=== PATIENT | male | born 1945 | race Two or more races ===

== ENCOUNTER 2020-03-02 18:00 | Inpatient (IN) | payer OTHER ==
[~2020-03-02] VITALS: Ht 162.6 cm; Wt 89.5 kg
[2020-03-02 20:49] LABS: Basophils # (auto) 0 10 ^3/uL (0-0.2); Eosinophils # (auto) 0 10 ^3/uL (0-0.8); Lymphocytes # (auto) 0.4 10 ^3/uL (0.4-5.4); Monocytes # (auto) 0.3 10 ^3/uL (0-1.3); Neutrophils # (auto) 2.2 10 ^3/uL (1.6-8.6); White Blood Cell 2.9 10^3/uL (4.4-10.8)
[2020-03-02 20:51] LABS: Basophils % (auto) 0.3 % (0.0-2.0); Hematocrit 34.9 % (41.0-53.0); Hemoglobin 12.8 g/dL (13.5-17.5); Lymphocytes % (auto) 13.7 % (10.0-50.0); Mean Corpuscular Hemoglobin 37.8 pg (28.0-32.0); Mean Corpuscular Hgb Conc. 36.6 g/dL (32.0-36.0); Mean Corpuscular Volume 103.2 fL (80.0-100.0); Platelet Count (auto) 82 10^3/uL (140-450); Red Blood Cells 3.38 10^6/uL (4.5-5.90); Red Cell Distribution Width 13.9 % (11.8-14.3)
[2020-03-02] MEDS ORDERED: ZINC SULFATE 220mg CAP or TAB PO ONE (21:00)
[2020-03-02] MEDS ORDERED: AZITHROMYCIN 500MG/ 250ML 250 ML IV ONE (21:00)
[2020-03-02] MEDS ORDERED: ASCORBIC ACID 500 MG TAB PO ONE (21:00)
[2020-03-02] MEDS ORDERED: DexAMETHasone SOD PHOS 10MG/1ML VIAL INJ IV ONE (21:15)
[2020-03-02 21:23] LABS: Albumin 2.8 g/dL (3.4-5.0); BUN/Creatinine Ratio 14.6; Potassium 4.2 mmol/L (3.5-5.1)
[2020-03-02 21:24] LABS: Lactic Acid w/Reflex 2.2 mmol/L (0.4-2.0)
[2020-03-02 21:27] LABS: Total Protein 7.9 g/dL (6.4-8.2)
[2020-03-02 23:09] LABS: INR 2.48 (0.9-1.15); Partial Thromboplastin Time 47.8 sec (23.0-31.2)
[2020-03-03] MEDS ORDERED: MORPHINE SULFATE 4 MG/ML SYR/VIAL IV PRN (02:30)
[2020-03-03] MEDS ORDERED: NITROGLYCERIN 0.4 MG SL TAB SL PRN (02:30)
[2020-03-03] MEDS ORDERED: ACETAMINOPHEN 325 MG TAB PO PRN (02:30)
[2020-03-03] MEDS ORDERED: HYDROcodone-ACET 5/325MG TAB PO PRN (02:30)
[2020-03-03] MEDS ORDERED: ONDANSETRON HCL 4 MG/2 ML VIAL IV PRN (02:30)
[2020-03-03] MEDS ORDERED: MORPHINE SULF INJ 2 MG/ML SYRINGE 1ML IV PRN (02:30)
[2020-03-03] MEDS ORDERED: DOCUSATE SOD 100 MG CAP PO PRN (02:30)
[2020-03-03] MEDS ORDERED: ALBUTEROL SULF HFA 90MCG INH 200DOSE IN PRN (02:30)
[2020-03-03] MEDS: SODIUM CHLOR 0.9% PF (SALINE LOCK) 10ML VIAL/SYR IV SCH ×3 (06:38→22:00)
[2020-03-03 08:00] VITALS: BP 123/63
[2020-03-03] MEDS: DOXYCYCLINE 100MG/250ML 250 ML IV SCH ×2 (11:31→21:45)
[2020-03-03] MEDS: BUDESONIDE (INHALATION) 180 MCG IH IN SCH ×2 (11:31→22:00)
[2020-03-03] MEDS: DexAMETHasone SOD PHOS 10MG/1ML VIAL INJ IV SCH (11:31)
[2020-03-03] MEDS: ASCORBIC ACID 500 MG TAB PO SCH ×2 (11:31→21:46)
[2020-03-03] MEDS: CHOLECALCIFEROL (VITD3) 2,000 UNIT CAP PO SCH (11:31)
[2020-03-03] MEDS: MULTIPLE VITAMIN TAB PO SCH (11:32)
[2020-03-03] MEDS: ZINC SULFATE 220mg CAP or TAB PO SCH (11:32)
[2020-03-03] MEDS: ENOXAPARIN SOD 40 MG/0.4 ML SYRINGE SC SCH ×2 (11:32→11:51)
[2020-03-03] MEDS: FAMOTIDINE 20 MG TAB PO SCH ×2 (11:32→21:46)
[2020-03-03 12:33] LABS: Basophils # (auto) 0 10 ^3/uL (0-0.2); Basophils % (auto) 0.1 % (0.0-2.0); Eosinophils # (auto) 0 10 ^3/uL (0-0.8); Hematocrit 34.2 % (41.0-53.0); Hemoglobin 12.2 g/dL (13.5-17.5); Lymphocytes # (auto) 0.3 10 ^3/uL (0.4-5.4); Lymphocytes % (auto) 12.4 % (10.0-50.0); Mean Corpuscular Hgb Conc. 35.6 g/dL (32.0-36.0); Mean Corpuscular Volume 101.4 fL (80.0-100.0); Monocytes # (auto) 0.2 10 ^3/uL (0-1.3); Monocytes % (auto) 7.6 % (0.0-12.0); Neutrophils # (auto) 1.8 10 ^3/uL (1.6-8.6); Neutrophils % (auto) 79.9 % (37.0-80.0); Nucleated Red Blood Cells % 0.1 %; Platelet Count (auto) 78 10^3/uL (140-450); Red Blood Cells 3.38 10^6/uL (4.5-5.90); Red Cell Distribution Width 13.9 % (11.8-14.3); White Blood Cell 2.3 10^3/uL (4.4-10.8)
[2020-03-03 13:20] LABS: Chloride 107 mmol/L (98-107); Potassium 4.1 mmol/L (3.5-5.1); Sodium 136 mmol/L (136-145)
[2020-03-03 13:30] LABS: Alanine Aminotransferase 57 U/L (16-61); Albumin 2.6 g/dL (3.4-5.0); Alkaline Phosphatase 177 U/L (45-117); Anion Gap 9 (5-15); Aspartate Aminotransferase 79 U/L (15-37); BUN/Creatinine Ratio 18.7; Bilirubin, Total 0.8 mg/dL (0.2-1.0); Blood Urea Nitrogen 17 mg/dL (7-18); Calcium 8.6 mg/dL (8.5-10.1); Carbon Dioxide 20 mmol/L (21-32); GFR African American 105 mL/min; GFR Non-African American 87 mL/min; Glucose 222 mg/dL (74-106); Magnesium 1.9 mg/dL (1.6-2.6); Total Protein 7.5 g/dL (6.4-8.2)
[2020-03-03 16:00] VITALS: BP 115/59
[2020-03-03] MEDS ORDERED: METF-370 PO (16:40)
[2020-03-03] MEDS ORDERED: ATE50T PO (16:40)
[2020-03-03] MEDS ORDERED: AMIO200T33 PO (16:40)
[2020-03-03] MEDS ORDERED: WARF1TAB36 PO (16:40)
[2020-03-03] MEDS ORDERED: LISI-646 PO (16:40)
[2020-03-03] MEDS ORDERED: IOHEXOL 350 MG/ML 100ML IJ ONE (16:45)
[2020-03-03] MEDS: SODIUM CHLORIDE 0.9% 1,000 ML IV SCH (23:55)
[2020-03-04] VITALS: BP_SYST 126; BP_SYST 153; BP_DIAS 38; BP_DIAS 83
[2020-03-04 06:10] LABS: Basophils # (auto) 0 10 ^3/uL (0-0.2); Eosinophils # (auto) 0 10 ^3/uL (0-0.8); Lymphocytes # (auto) 0.2 10 ^3/uL (0.4-5.4); Lymphocytes % (auto) 4.7 % (10.0-50.0); Monocytes # (auto) 0.2 10 ^3/uL (0-1.3); Neutrophils # (auto) 4.8 10 ^3/uL (1.6-8.6); Platelet Count (auto) 81 10^3/uL (140-450); White Blood Cell 5.3 10^3/uL (4.4-10.8)
[2020-03-04 06:14] LABS: Basophils % (auto) 0.1 % (0.0-2.0); Hematocrit 33.6 % (41.0-53.0); Mean Corpuscular Hemoglobin 36.5 pg (28.0-32.0); Mean Corpuscular Hgb Conc. 35.9 g/dL (32.0-36.0); Mean Corpuscular Volume 101.8 fL (80.0-100.0); Monocytes % (auto) 4.7 % (0.0-12.0); Neutrophils % (auto) 90.5 % (37.0-80.0); Red Cell Distribution Width 13.5 % (11.8-14.3)
[2020-03-04] MEDS: SODIUM CHLOR 0.9% PF (SALINE LOCK) 10ML VIAL/SYR IV SCH ×3 (06:21→21:39)
[2020-03-04 06:25] LABS: Albumin 2.5 g/dL (3.4-5.0); Calcium 8.9 mg/dL (8.5-10.1)
[2020-03-04 06:30] LABS: BUN/Creatinine Ratio 25.9; Bilirubin, Total 0.6 mg/dL (0.2-1.0); Total Protein 7.4 g/dL (6.4-8.2)
[2020-03-04 07:47] VITALS: BP 127/64
[2020-03-04] MEDS ORDERED: ENOXAPARIN SOD 40 MG/0.4 ML SYRINGE SC SCH (10:00)
[2020-03-04] MEDS: SODIUM CHLORIDE 0.9% 1,000 ML IV SCH (11:43)
[2020-03-04] MEDS: BUDESONIDE (INHALATION) 180 MCG IH IN SCH ×2 (11:43→18:40)
[2020-03-04] MEDS: DexAMETHasone SOD PHOS 10MG/1ML VIAL INJ IV SCH (11:44)
[2020-03-04] MEDS: DOXYCYCLINE 100MG/250ML 250 ML IV SCH ×2 (11:44→21:39)
[2020-03-04] MEDS: CHOLECALCIFEROL (VITD3) 2,000 UNIT CAP PO SCH (11:44)
[2020-03-04] MEDS: ZINC SULFATE 220mg CAP or TAB PO SCH (11:45)
[2020-03-04] MEDS: MULTIPLE VITAMIN TAB PO SCH (11:45)
[2020-03-04] MEDS: ASCORBIC ACID 500 MG TAB PO SCH ×2 (11:45→21:40)
[2020-03-04] MEDS: FAMOTIDINE 20 MG TAB PO SCH ×2 (11:45→21:39)
[2020-03-04] MEDS ORDERED: REMDESIVIR PER PHARMACY 0 ML IV SCH (14:15)
[2020-03-04] MEDS ORDERED: DEXTROSE (50%) 50ML SYRG IV PRN (14:15)
[2020-03-04 15:57] VITALS: BP 118/56
[2020-03-04 16:58] LABS: INR 3.27 (0.9-1.15); Partial Thromboplastin Time 43.9 sec (23.0-31.2)
[2020-03-04] MEDS ORDERED: REMDESIVIR 200 MG in NS 210ml LOADING DOSE ADULT IV ONE (17:00)
[2020-03-04 17:04] LABS: Lactic Acid w/Reflex 2.5 mmol/L (0.4-2.0)
[2020-03-04] MEDS: ALBUTEROL SULF HFA 90MCG INH 200DOSE IN SCH ×2 (17:20→18:40)
[2020-03-04] MEDS: InsuLIN REG 1unit/0.01ml Soln (100units/ml) SC SCH ×2 (17:20→20:01)
[2020-03-04] MEDS: ACCU-CHEK COMFORT CURVE STRIP VI SCH ×2 (17:21→20:00)
[2020-03-05] VITALS: BP 130/60
[2020-03-05] MEDS: ACCU-CHEK COMFORT CURVE STRIP VI SCH ×6 (00:17→20:00)
[2020-03-05] MEDS: InsuLIN REG 1unit/0.01ml Soln (100units/ml) SC SCH ×5 (00:18→20:00)
[2020-03-05] MEDS: SODIUM CHLOR 0.9% PF (SALINE LOCK) 10ML VIAL/SYR IV SCH ×2 (05:02→15:45)
[2020-03-05 06:31] LABS: Basophils # (auto) 0 10 ^3/uL (0-0.2); Eosinophils # (auto) 0 10 ^3/uL (0-0.8); Lymphocytes # (auto) 0.4 10 ^3/uL (0.4-5.4); Mean Corpuscular Hemoglobin 35.5 pg (28.0-32.0); Mean Corpuscular Hgb Conc. 35.2 g/dL (32.0-36.0); Mean Corpuscular Volume 100.9 fL (80.0-100.0); Monocytes # (auto) 0.6 10 ^3/uL (0-1.3)
[2020-03-05 06:35] LABS: Basophils % (auto) 0.1 % (0.0-2.0); Hematocrit 33.6 % (41.0-53.0); Hemoglobin 11.8 g/dL (13.5-17.5); Lymphocytes % (auto) 4.9 % (10.0-50.0); Monocytes % (auto) 7.7 % (0.0-12.0); Neutrophils # (auto) 6.6 10 ^3/uL (1.6-8.6); Neutrophils % (auto) 87.3 % (37.0-80.0); Nucleated Red Blood Cells % 0.1 %; Platelet Count (auto) 88 10^3/uL (140-450); Red Blood Cells 3.33 10^6/uL (4.5-5.90); Red Cell Distribution Width 13.9 % (11.8-14.3); White Blood Cell 7.6 10^3/uL (4.4-10.8)
[2020-03-05 06:40] LABS: INR 3.08 (0.9-1.15); Partial Thromboplastin Time 42.4 sec (23.0-31.2)
[2020-03-05] MEDS: ALBUTEROL SULF HFA 90MCG INH 200DOSE IN SCH ×2 (06:41→14:00)
[2020-03-05 06:55] LABS: Potassium 3.9 mmol/L (3.5-5.1)
[2020-03-05] MEDS: BUDESONIDE (INHALATION) 180 MCG IH IN SCH (06:58)
[2020-03-05 07:14] LABS: Albumin 2.5 g/dL (3.4-5.0); BUN/Creatinine Ratio 31.8; Bilirubin, Total 0.7 mg/dL (0.2-1.0); Calcium 8.5 mg/dL (8.5-10.1); Total Protein 7.4 g/dL (6.4-8.2)
[2020-03-05 08:00] VITALS: BP 112/52
[2020-03-05] MEDS ORDERED: INSULIN LANTUS (GLARGINE) 1 /0.01ml (100units/ml) SC SCH (10:00)
[2020-03-05] MEDS ORDERED: AMIODARONE HCL 200 MG TAB PO SCH (10:00)
[2020-03-05] MEDS: MULTIPLE VITAMIN TAB PO SCH (10:15)
[2020-03-05] MEDS: ASCORBIC ACID 500 MG TAB PO SCH (10:15)
[2020-03-05] MEDS: FAMOTIDINE 20 MG TAB PO SCH (10:15)
[2020-03-05] MEDS: ZINC SULFATE 220mg CAP or TAB PO SCH (10:16)
[2020-03-05] MEDS: CHOLECALCIFEROL (VITD3) 2,000 UNIT CAP PO SCH (10:17)
[2020-03-05] MEDS: DexAMETHasone SOD PHOS 10MG/1ML VIAL INJ IV SCH (10:17)
[2020-03-05] MEDS: DOXYCYCLINE 100MG/250ML 250 ML IV SCH (10:18)
[2020-03-05] MEDS ORDERED: REMDESIVIR 100 MG in SODIUM CHL 0.9% 250 ML IV SCH (15:00)
[2020-03-05] MEDS ORDERED: WARF3TAB22 PO (15:52)
[2020-03-05] MEDS ORDERED: METF-489 PO (15:52)
[2020-03-05] MEDS ORDERED: TEMA30CA PO (15:52)
[2020-03-05] MEDS ORDERED: LOVA20TA4 PO (15:53)
[2020-03-05] MEDS ORDERED: AZIT250T PO (15:56)
[2020-03-05 16:00] VITALS: BP 135/57
[2020-03-05] MEDS ORDERED: ALBUAER3 IN (18:55)
[2020-03-05] MEDS ORDERED: DOXY-338 PO (18:55)
[2020-03-05] MEDS ORDERED: ZINC220C8 PO (18:55)
[2020-03-05] MEDS ORDERED: CHOL1CAP47 PO (18:55)
[2020-03-05] MEDS ORDERED: ASCO500T11 PO (18:55)
[2020-03-05] MEDS ORDERED: DEXA6TAB6 PO (18:55)
[2020-03-05 19:24] VITALS: BP 135/57
== END 2020-03-05 20:31 | disposition home health service (06) | DRG 177 ==
LOC: ER 18:00 → EDBD 18:00 → ER 03-03 04:53 → EAST 03-03 05:49 → TELE-EAST 03-03 09:37
PROVIDERS: ADMIT Nurse Practitioner Family; ATTEND Internal Medicine
PROC: XW033E5 Introduction of Remdesivir Anti-infective into Peripheral Vein, Percutaneous Approach, New Technology Group 5 (ICD-10-PCS; principal; 2020-03-04)
DX: U07.1 COVID-19 (principal); J12.89 Other viral pneumonia; J96.01 Acute respiratory failure with hypoxia; E87.2 Acidosis; D68.9 Coagulation defect, unspecified; J90 Pleural effusion, not elsewhere classified; D72.819 Decreased white blood cell count, unspecified; E78.5 Hyperlipidemia, unspecified; I48.91 Unspecified atrial fibrillation; E11.9 Type 2 diabetes mellitus without complications; E66.9 Obesity, unspecified; E86.0 Dehydration; Z77.090 Contact with and (suspected) exposure to asbestos; I10 Essential (primary) hypertension; K74.60 Unspecified cirrhosis of liver; Z68.33 Body mass index [BMI] 33.0-33.9, adult; Z82.49 Family history of ischemic heart disease and other diseases of the circulatory system; Z95.0 Presence of cardiac pacemaker
CPT/HCPCS: 36415; 36600; 71045; 71275; 80053; 82728; 82805; 82962; 83036; 83605; 83735; 83880; 84484; 85025; 85379; 85610; 85730; 87040; 87426; 93005; 93970; 94640; 96365; 96375; G0378; J1100; J1815; J2405; J3490

== ENCOUNTER 2020-05-21 19:08 | Emergency (ER) | payer OTHER ==
[~2020-05-21] VITALS: Ht 162.6 cm; Wt 104.3 kg
[~2020-05-21 19:08] MED LIST: ALBUAER3 IN; AMIO200T33 PO; ASCO500T11 PO; ATE50T PO; CHOL1CAP47 PO; DEXA6TAB6 PO; DOXY-338 PO; LISI-646 PO; LOVA20TA4 PO; METF-489 PO; TEMA30CA PO; WARF3TAB22 PO; ZINC220C8 PO
[2020-05-21 20:09] LABS: Urine Bacteria NONE SEEN /hpf (None Seen); Urine Blood Negative /uL (Negative); Urine Mucus FEW (None Seen); Urine Specific Gravity 1.004 (1.001-1.035); Urine WBC 1 /hpf (0 - 3)
[2020-05-21 21:04] LABS: Basophils # (auto) 0 10 ^3/uL (0-0.2); Basophils % (auto) 0.6 % (0.0-2.0); Eosinophils # (auto) 0.1 10 ^3/uL (0-0.8); Eosinophils % (auto) 1.2 % (0.0-7.0); Hematocrit 33.9 % (41.0-53.0); Hemoglobin 11.8 g/dL (13.5-17.5); Lymphocytes # (auto) 0.7 10 ^3/uL (0.4-5.4); Lymphocytes % (auto) 13.7 % (10.0-50.0); Mean Corpuscular Hemoglobin 35.1 pg (28.0-32.0); Mean Corpuscular Hgb Conc. 34.8 g/dL (32.0-36.0); Mean Corpuscular Volume 100.8 fL (80.0-100.0); Monocytes # (auto) 0.6 10 ^3/uL (0-1.3); Monocytes % (auto) 11.2 % (0.0-12.0); Neutrophils # (auto) 3.8 10 ^3/uL (1.6-8.6); Neutrophils % (auto) 73.3 % (37.0-80.0); Nucleated Red Blood Cells % 0.1 %; Platelet Count (auto) 72 10^3/uL (140-450); Red Blood Cells 3.36 10^6/uL (4.5-5.90); Red Cell Distribution Width 15.5 % (11.8-14.3); White Blood Cell 5.2 10^3/uL (4.4-10.8)
[2020-05-21 21:25] LABS: Albumin 3.3 g/dL (3.4-5.0); Anion Gap 8 (5-15); Blood Urea Nitrogen 16 mg/dL (7-18); Calcium 8.7 mg/dL (8.5-10.1); Carbon Dioxide 22 mmol/L (21-32); Chloride 110 mmol/L (98-107); Glucose 108 mg/dL (74-106); Magnesium 1.8 mg/dL (1.6-2.6); Sodium 140 mmol/L (136-145)
[2020-05-21 21:28] LABS: Partial Thromboplastin Time 65.5 sec (23.0-31.2)
[2020-05-21 21:32] LABS: Alanine Aminotransferase 38 U/L (16-61); Alkaline Phosphatase 135 U/L (45-117); Aspartate Aminotransferase 48 U/L (15-37); BUN/Creatinine Ratio 16.8; Bilirubin, Total 0.6 mg/dL (0.2-1.0); GFR African American 99 mL/min; GFR Non-African American 82 mL/min; INR 7.42 (0.9-1.15); Total Protein 7.8 g/dL (6.4-8.2)
[2020-05-21] MEDS ORDERED: FUROSEMIDE 40 MG/4 ML VIAL IV ONE (22:45)
[2020-05-21] MEDS ORDERED: PHYTONADIONE(VitK) ORAL Susp 10mg/10ml(1mg/ml) PO ONE (22:45)
[2020-05-21 22:52] VITALS: BP 144/59
[2020-05-21] MEDS ORDERED: PHYTONADIONE (VIT K)10 MG/ML 1ML VIAL SUBCUT ONE (23:15)
== END 2020-05-21 23:28 | disposition home or self-care (01) ==
LOC: ER 19:09
DX: I11.0 Hypertensive heart disease with heart failure (principal); E11.9 Type 2 diabetes mellitus without complications; E78.5 Hyperlipidemia, unspecified; I50.9 Heart failure, unspecified; T45.511A Poisoning by anticoagulants, accidental (unintentional), initial encounter; Y92.89 Other specified places as the place of occurrence of the external cause
CPT/HCPCS: 36415; 71045; 80053; 81001; 83735; 83880; 84484; 85025; 85610; 85730; 93005; 96374; 99285; J1940; J3430

== ENCOUNTER 2020-10-21 23:06 | Emergency (ER) | payer OTHER ==
[~2020-10-21] VITALS: Ht 162.6 cm; Wt 89.8 kg
[~2020-10-21 23:06] MED LIST changes: -LISI-646 PO; +LISI20TA28 PO
[2020-10-21 23:56] LABS: Basophils # (auto) 0 10 ^3/uL (0-0.2); Hemoglobin 11.9 g/dL (13.5-17.5); Lymphocytes # (auto) 0.9 10 ^3/uL (0.4-5.4); Monocytes # (auto) 0.6 10 ^3/uL (0-1.3); White Blood Cell 6.3 10^3/uL (4.4-10.8)
[2020-10-21 23:58] LABS: Basophils % (auto) 0.4 % (0.0-2.0); Eosinophils # (auto) 0 10 ^3/uL (0-0.8); Eosinophils % (auto) 0.7 % (0.0-7.0); Hematocrit 33.6 % (41.0-53.0); Lymphocytes % (auto) 14.7 % (10.0-50.0); Mean Corpuscular Hemoglobin 35.1 pg (28.0-32.0); Mean Corpuscular Hgb Conc. 35.3 g/dL (32.0-36.0); Mean Corpuscular Volume 99.2 fL (80.0-100.0); Monocytes % (auto) 9.1 % (0.0-12.0); Neutrophils # (auto) 4.7 10 ^3/uL (1.6-8.6); Neutrophils % (auto) 75.1 % (37.0-80.0); Red Blood Cells 3.39 10^6/uL (4.5-5.90); Red Cell Distribution Width 16.6 % (11.8-14.3)
[2020-10-22 00:17] LABS: Albumin 3.1 g/dL (3.4-5.0); Anion Gap 8 (5-15); BUN/Creatinine Ratio 17.4; Blood Urea Nitrogen 15 mg/dL (7-18); Calcium 8.4 mg/dL (8.5-10.1); Carbon Dioxide 23 mmol/L (21-32); Chloride 108 mmol/L (98-107); GFR African American 111 mL/min; GFR Non-African American 92 mL/min; Glucose 131 mg/dL (74-106); Potassium 4.1 mmol/L (3.5-5.1); Sodium 139 mmol/L (136-145)
[2020-10-22 00:22] LABS: Alanine Aminotransferase 44 U/L (16-61); Alkaline Phosphatase 128 U/L (45-117); Aspartate Aminotransferase 65 U/L (15-37); Bilirubin, Total 0.6 mg/dL (0.2-1.0); Total Protein 7.6 g/dL (6.4-8.2)
[2020-10-22] MEDS ORDERED: ONDANSETRON HCL 4 MG/2 ML VIAL IV ONE ×2 (01:15→04:15)
[2020-10-22] MEDS ORDERED: ACETAMINOPHEN 325 MG TAB PO ONE (01:15)
[2020-10-22] MEDS ORDERED: HYDROcodone-ACET 5/325MG TAB PO ONE (03:45)
[2020-10-22] MEDS ORDERED: FAMOTIDINE (10MG/ML) 2ML VL IV ONE (06:00)
[2020-10-22 06:41] LABS: INR 2.05 (0.9-1.15); Partial Thromboplastin Time 64.3 sec (23.6-33.0)
[2020-10-22] MEDS ORDERED: FUROSEMIDE 40 MG/4 ML VIAL IV ONE (07:45)
[2020-10-22 07:55] VITALS: BP 146/65
== END 2020-10-22 07:55 | disposition home or self-care (01) ==
LOC: ER 23:09
DX: R07.9 Chest pain, unspecified (principal); R11.2 Nausea with vomiting, unspecified; R10.84 Generalized abdominal pain; I11.0 Hypertensive heart disease with heart failure; I50.9 Heart failure, unspecified; I48.91 Unspecified atrial fibrillation; E11.9 Type 2 diabetes mellitus without complications; E78.5 Hyperlipidemia, unspecified; Z95.0 Presence of cardiac pacemaker; Z79.2 Long term (current) use of antibiotics; Z79.01 Long term (current) use of anticoagulants; Z79.899 Other long term (current) drug therapy
CPT/HCPCS: 36415; 80053; 83880; 84484; 85025; 85610; 85730; 93005; 96374; 96375; 96376; 99284; J1940; J2405; J3490

== ENCOUNTER 2021-01-07 18:10 | Inpatient (IN) | payer OTHER ==
[~2021-01-07] VITALS: Ht 162.6 cm; Wt 90.7 kg
[2021-01-07 19:16] LABS: Basophils # (auto) 0 10 ^3/uL (0-0.2); Eosinophils # (auto) 0 10 ^3/uL (0-0.8); Eosinophils % (auto) 0.7 % (0.0-7.0); Hemoglobin 10.8 g/dL (13.5-17.5); Lymphocytes # (auto) 0.8 10 ^3/uL (0.4-5.4); Mean Corpuscular Hgb Conc. 34.3 g/dL (32.0-36.0); Monocytes # (auto) 0.6 10 ^3/uL (0-1.3)
[2021-01-07 19:17] LABS: Basophils % (auto) 0.3 % (0.0-2.0); Hematocrit 31.5 % (41.0-53.0); Lymphocytes % (auto) 13.5 % (10.0-50.0); Mean Corpuscular Hemoglobin 35.4 pg (28.0-32.0); Neutrophils # (auto) 4.8 10 ^3/uL (1.6-8.6); Neutrophils % (auto) 75.5 % (37.0-80.0); Nucleated Red Blood Cells % 0.1 %; Red Blood Cells 3.06 10^6/uL (4.5-5.90); Red Cell Distribution Width 15.8 % (11.8-14.3); White Blood Cell 6.3 10^3/uL (4.4-10.8)
[2021-01-07 19:29] LABS: Albumin 3.1 g/dL (3.4-5.0); Calcium 8.6 mg/dL (8.5-10.1); Potassium 4.6 mmol/L (3.5-5.1)
[2021-01-07 19:35] LABS: Bilirubin, Total 0.7 mg/dL (0.2-1.0); Total Protein 7.8 g/dL (6.4-8.2)
[2021-01-07 20:00] LABS: BUN/Creatinine Ratio 19.5
[2021-01-07 20:04] LABS: INR 1.17 (0.9-1.15)
[2021-01-07] MEDS ORDERED: FUROSEMIDE 40 MG/4 ML VIAL IV ONE (20:30)
[2021-01-07] MEDS ORDERED: MORPHINE SULFATE INJECTION 2 MG/ML SYRG IV ONE ×2 (20:45→23:15)
[2021-01-07] MEDS ORDERED: ONDANSETRON HCL 4 MG/2 ML VIAL IV ONE (20:45)
[2021-01-07 21:30] LABS: Urine Bacteria NONE SEEN /hpf (None Seen); Urine Blood Negative /uL (Negative); Urine Specific Gravity 1.022 (1.001-1.035); Urine WBC <1 /hpf (0 - 3)
[2021-01-07] MEDS ORDERED: DEXTROSE (50%) 50ML SYRG IV PRN (22:00)
[2021-01-07] MEDS ORDERED: TEMAZEPAM 15 MG CAP PO PRN (22:00)
[2021-01-07] MEDS ORDERED: MORPHINE SULFATE INJECTION 2 MG/ML SYRG IV PRN (22:00)
[2021-01-07] MEDS ORDERED: NITROGLYCERIN 0.4 MG SL TAB SL PRN (22:00)
[2021-01-07] MEDS ORDERED: ACETAMINOPHEN 325 MG TAB PO PRN (22:00)
[2021-01-07] MEDS ORDERED: ONDANSETRON HCL 4 MG/2 ML VIAL IV PRN (22:00)
[2021-01-07] MEDS ORDERED: ALBUTEROL SULF 2.5 MG/0.5ML(0.5%) NEB SOLN NEB PRN (22:00)
[2021-01-07] MEDS ORDERED: IOHEXOL 350 MG/ML 100ML IJ ONE (22:15)
[2021-01-07] MEDS: InsuLIN REG 1unit/0.01ml Soln (100units/ml) SC SCH (23:40)
[2021-01-07] MEDS: ACCU-CHEK COMFORT CURVE STRIP VI SCH (23:40)
[2021-01-07] MEDS: ATORVASTATIN 20 MG TAB PO SCH (23:45)
[2021-01-08] VITALS (7 sets, daily range): BP systolic 101–145; BP diastolic 55–73
[2021-01-08 05:21] LABS: Basophils # (auto) 0 10 ^3/uL (0-0.2); Eosinophils # (auto) 0.1 10 ^3/uL (0-0.8); Monocytes # (auto) 0.8 10 ^3/uL (0-1.3); Red Blood Cells 2.99 10^6/uL (4.5-5.90)
[2021-01-08 05:27] LABS: Basophils % (auto) 0.4 % (0.0-2.0); Eosinophils % (auto) 0.9 % (0.0-7.0); Hematocrit 30.5 % (41.0-53.0); Hemoglobin 10.5 g/dL (13.5-17.5); Lymphocytes % (auto) 16.9 % (10.0-50.0); Mean Corpuscular Hemoglobin 35.2 pg (28.0-32.0); Mean Corpuscular Hgb Conc. 34.5 g/dL (32.0-36.0); Neutrophils # (auto) 4.3 10 ^3/uL (1.6-8.6); Neutrophils % (auto) 68.8 % (37.0-80.0); Nucleated Red Blood Cells % 0.1 %; Red Cell Distribution Width 15.7 % (11.8-14.3); White Blood Cell 6.2 10^3/uL (4.4-10.8)
[2021-01-08 05:44] LABS: Calcium 8.8 mg/dL (8.5-10.1)
[2021-01-08] MEDS: InsuLIN REG 1unit/0.01ml Soln (100units/ml) SC SCH ×5 (06:08→22:14)
[2021-01-08] MEDS: ACCU-CHEK COMFORT CURVE STRIP VI SCH ×4 (06:08→22:15)
[2021-01-08] MEDS: FUROSEMIDE 20 MG/2 ML VIAL IV SCH ×2 (06:49→18:00)
[2021-01-08] MEDS: LISINOPRIL 20 MG TAB PO SCH (10:00)
[2021-01-08] MEDS: AMIODARONE HCL 200 MG TAB PO SCH (10:00)
[2021-01-08] MEDS: ATENOLOL 50 MG TAB PO SCH (10:00)
[2021-01-08] MEDS: PANTOPRAZOLE 40 MG TAB PO SCH (10:00)
[2021-01-08] MEDS ORDERED: WARFARIN SODIUM 5 MG TAB PO ONE (17:00)
[2021-01-08] MEDS ORDERED: HYDROmorphone HCL 2 MG/ML VL IV ONE (19:15)
[2021-01-08] MEDS: ATORVASTATIN 20 MG TAB PO SCH (22:14)
[2021-01-09 05:00] VITALS: BP 134/59
[2021-01-09 06:09] LABS: Basophils # (auto) 0 10 ^3/uL (0-0.2); Basophils % (auto) 0.4 % (0.0-2.0); Eosinophils # (auto) 0 10 ^3/uL (0-0.8); Eosinophils % (auto) 0.6 % (0.0-7.0); Hematocrit 32.3 % (41.0-53.0); Hemoglobin 11.3 g/dL (13.5-17.5); Lymphocytes # (auto) 0.9 10 ^3/uL (0.4-5.4); Lymphocytes % (auto) 13.8 % (10.0-50.0); Mean Corpuscular Hemoglobin 36.1 pg (28.0-32.0); Mean Corpuscular Hgb Conc. 35.1 g/dL (32.0-36.0); Mean Corpuscular Volume 102.8 fL (80.0-100.0); Monocytes # (auto) 0.8 10 ^3/uL (0-1.3); Monocytes % (auto) 12.1 % (0.0-12.0); Neutrophils % (auto) 73.1 % (37.0-80.0); Red Blood Cells 3.14 10^6/uL (4.5-5.90); Red Cell Distribution Width 15.5 % (11.8-14.3); White Blood Cell 6.8 10^3/uL (4.4-10.8)
[2021-01-09 06:25] LABS: INR 1.16 (0.9-1.15); Partial Thromboplastin Time 31.8 sec (23.6-33.0)
[2021-01-09 06:27] LABS: Potassium 4.1 mmol/L (3.5-5.1)
[2021-01-09 06:32] LABS: BUN/Creatinine Ratio 21.6; Calcium 8.7 mg/dL (8.5-10.1)
[2021-01-09] MEDS: FUROSEMIDE 20 MG/2 ML VIAL IV SCH (06:46)
[2021-01-09] MEDS: InsuLIN REG 1unit/0.01ml Soln (100units/ml) SC SCH ×2 (07:00→11:36)
[2021-01-09] MEDS: ACCU-CHEK COMFORT CURVE STRIP VI SCH ×2 (07:20→11:36)
[2021-01-09] MEDS ORDERED: ADENOSINE 76 MG in GIVE UN-DILUTED 0 ML IV STA (07:58)
[2021-01-09 08:10] VITALS: BP 111/52
[2021-01-09 09:05] VITALS: BP 133/61
[2021-01-09] MEDS: ATENOLOL 50 MG TAB PO SCH (10:11)
[2021-01-09] MEDS: PANTOPRAZOLE 40 MG TAB PO SCH (10:11)
[2021-01-09] MEDS: AMIODARONE HCL 200 MG TAB PO SCH (10:11)
[2021-01-09] MEDS: LISINOPRIL 20 MG TAB PO SCH (10:12)
[2021-01-09 12:42] VITALS: BP 95/54
[2021-01-09] MEDS ORDERED: POTA-167 PO (13:44)
[2021-01-09] MEDS ORDERED: LISI-275 PO (13:44)
[2021-01-09] MEDS ORDERED: FURO1TAB33 PO (13:44)
[2021-01-09 15:48] VITALS: BP 95/54
[2021-01-09 16:29] VITALS: BP 118/78
[2021-01-09] MEDS ORDERED: WARFARIN SODIUM 5 MG TAB PO ONE (17:00)
== END 2021-01-09 17:00 | disposition home or self-care (01) | DRG 291 ==
LOC: ER 18:10 → TELE 22:00 → TELE-CENTR 23:29
PROVIDERS: ADMIT Nurse Practitioner; ATTEND Internal Medicine
DX: I11.0 Hypertensive heart disease with heart failure (principal); I50.33 Acute on chronic diastolic (congestive) heart failure; E44.0 Moderate protein-calorie malnutrition; D68.9 Coagulation defect, unspecified; E66.9 Obesity, unspecified; E11.9 Type 2 diabetes mellitus without complications; Z77.090 Contact with and (suspected) exposure to asbestos; E78.5 Hyperlipidemia, unspecified; Z20.822 Contact with and (suspected) exposure to COVID-19; I48.91 Unspecified atrial fibrillation; K74.60 Unspecified cirrhosis of liver; Z82.49 Family history of ischemic heart disease and other diseases of the circulatory system; Z83.3 Family history of diabetes mellitus; Z82.3 Family history of stroke; Z86.16 Personal history of COVID-19; Z87.01 Personal history of pneumonia (recurrent); Z91.14 Patient's other noncompliance with medication regimen; Z95.0 Presence of cardiac pacemaker; Z68.34 Body mass index [BMI] 34.0-34.9, adult; Z79.84 Long term (current) use of oral hypoglycemic drugs
CPT/HCPCS: 36415; 71046; 71275; 78452; 80048; 80053; 81001; 82962; 83880; 84484; 85025; 85379; 85610; 85730; 87426; 93005; 93017; 93306; 96374; 96375; 96376; G0378; J0153; J1815; J2405

== ENCOUNTER 2021-04-23 23:15 | Inpatient (IN) | payer OTHER ==
[~2021-04-23] VITALS: Ht 162.6 cm; Wt 89.8 kg
[~2021-04-23 23:15] MED LIST changes: -ASCO500T11 PO; -CHOL1CAP47 PO; -DEXA6TAB6 PO; -DOXY-338 PO; +FURO1TAB33 PO; +LISI-275 PO; -LISI20TA28 PO; +POTA-167 PO; -ZINC220C8 PO
[2021-04-23] MEDS ORDERED: METOCLOPRAMIDE HCL 5MG/ml INJ 2ml VIAL IV ONE (23:30)
[2021-04-23] MEDS ORDERED: SODIUM CHLORIDE 0.9% 500 ML IV ONE (23:30)
[2021-04-23] MEDS ORDERED: FAMOTIDINE (10MG/ML) 2ML VL IV ONE (23:30)
[2021-04-23] MEDS ORDERED: MORPHINE SULFATE 4 MG/ML SYR/VIAL IV ONE (23:30)
[2021-04-24 00:16] LABS: Basophils # (auto) 0 10 ^3/uL (0-0.2); Basophils % (auto) 0.6 % (0.0-2.0); Eosinophils # (auto) 0 10 ^3/uL (0-0.8); Eosinophils % (auto) 0.7 % (0.0-7.0); Hematocrit 33.9 % (41.0-53.0); Hemoglobin 11.3 g/dL (13.5-17.5); Lymphocytes # (auto) 0.9 10 ^3/uL (0.4-5.4); Lymphocytes % (auto) 12.2 % (10.0-50.0); Mean Corpuscular Hemoglobin 33.1 pg (28.0-32.0); Mean Corpuscular Hgb Conc. 33.4 g/dL (32.0-36.0); Mean Corpuscular Volume 99.2 fL (80.0-100.0); Monocytes # (auto) 0.5 10 ^3/uL (0-1.3); Monocytes % (auto) 7.4 % (0.0-12.0); Neutrophils # (auto) 5.8 10 ^3/uL (1.6-8.6); Neutrophils % (auto) 79.1 % (37.0-80.0); Nucleated Red Blood Cells % 0.1 %; Red Blood Cells 3.42 10^6/uL (4.5-5.90); Red Cell Distribution Width 17.1 % (11.8-14.3); White Blood Cell 7.4 10^3/uL (4.4-10.8)
[2021-04-24] MEDS ORDERED: METOCLOPRAMIDE HCL 5MG/ml INJ 2ml VIAL ONE (00:24)
[2021-04-24 00:30] LABS: Albumin 3.4 g/dL (3.4-5.0); Calcium 9.3 mg/dL (8.5-10.1); Potassium 4.8 mmol/L (3.5-5.1)
[2021-04-24] MEDS ORDERED: METOCLOPRAMIDE HCL 5MG/ml INJ 2ml VIAL IV ONE (00:30)
[2021-04-24 00:32] LABS: BUN/Creatinine Ratio 28.6
[2021-04-24 00:35] LABS: Bilirubin, Total 0.5 mg/dL (0.2-1.0); Total Protein 7.9 g/dL (6.4-8.2)
[2021-04-24] MEDS ORDERED: IOHEXOL 300 MG/ML 100ML BOTTLE IJ ONE (01:12)
[2021-04-24] MEDS ORDERED: DONNATAL 5ml ORAL Elix (BELLADONNA ALK-PHENOBARB) PO ONE (01:15)
[2021-04-24] MEDS ORDERED: PANTOPRAZOLE 40 MG/10 ML VIAL INJ IV ONE (02:00)
[2021-04-24] MEDS ORDERED: SUCRALFATE 1 GM/10 ML ORAL SUSP PO ONE (02:15)
[2021-04-24] MEDS ORDERED: LACTULOSE 20Gm/30ML SOLN PO ONE (05:15)
[2021-04-24] MEDS ORDERED: LACTULOSE 20Gm/30ML SOLN ONE (05:46)
[2021-04-24] MEDS ORDERED: DEXTROSE (50%) 50ML SYRG IV PRN (06:15)
[2021-04-24] MEDS ORDERED: MORPHINE SULFATE 4 MG/ML SYR/VIAL IV PRN (06:15)
[2021-04-24] MEDS ORDERED: HALOPERIDOL LACTATE 5 MG/ML INJ VIAL IV ONE (06:15)
[2021-04-24] MEDS ORDERED: HALOPERIDOL LACTATE 5 MG/ML INJ VIAL ONE (06:24)
[2021-04-24 08:24] LABS: INR 3.02 (0.9-1.15); Partial Thromboplastin Time 45.4 sec (23.6-33.0)
[2021-04-24 09:30] VITALS: BP 132/58
[2021-04-24] MEDS: PANTOPRAZOLE 40 MG/10 ML VIAL INJ IV SCH (09:48)
[2021-04-24] MEDS: ONDANSETRON HCL 4 MG/2 ML VIAL IV PRN (09:49)
[2021-04-24] MEDS: AMIODARONE HCL 200 MG TAB PO SCH (10:00)
[2021-04-24] MEDS: LACTULOSE 20Gm/30ML SOLN PO SCH (10:00)
[2021-04-24] MEDS: FUROSEMIDE 20 MG TAB PO SCH (10:00)
[2021-04-24] MEDS ORDERED: ATENOLOL 50 MG TAB PO SCH (10:00)
[2021-04-24] MEDS: ACCU-CHEK COMFORT CURVE STRIP VI SCH ×3 (11:52→23:05)
[2021-04-24] MEDS: InsuLIN REG 1unit/0.01ml Soln (100units/ml) SC SCH ×3 (11:52→17:06)
[2021-04-24 13:00] VITALS: BP 120/50
[2021-04-24] MEDS ORDERED: CAL025T GT (13:39)
[2021-04-24] MEDS ORDERED: LOVA20TA4 PO (13:39)
[2021-04-24] MEDS ORDERED: FURO40TA4 PO (13:39)
[2021-04-24] MEDS ORDERED: LISI20TA28 PO (13:39)
[2021-04-24] MEDS ORDERED: POTA1TAB4 PO (13:41)
[2021-04-24 17:00] VITALS: BP 169/64
[2021-04-24 19:56] LABS: INR 2.8 (0.9-1.15)
[2021-04-24 20:00] VITALS: BP 121/80
[2021-04-24 22:00] VITALS: BP 116/43
[2021-04-24] MEDS ORDERED: ATORVASTATIN 20 MG TAB PO SCH (22:00)
[2021-04-25] MEDS: ONDANSETRON HCL 4 MG/2 ML VIAL IV PRN ×2 (04:24→09:55)
[2021-04-25 05:00] VITALS: BP 133/58
[2021-04-25] MEDS: ACCU-CHEK COMFORT CURVE STRIP VI SCH ×2 (06:21→11:49)
[2021-04-25] MEDS: InsuLIN REG 1unit/0.01ml Soln (100units/ml) SC SCH ×2 (06:23→11:49)
[2021-04-25 07:06] LABS: Potassium 4.1 mmol/L (3.5-5.1)
[2021-04-25 07:13] LABS: Basophils # (auto) 0 10 ^3/uL (0-0.2); Basophils % (auto) 0.5 % (0.0-2.0); Eosinophils # (auto) 0.1 10 ^3/uL (0-0.8); Eosinophils % (auto) 1.9 % (0.0-7.0); Hematocrit 30.7 % (41.0-53.0); Lymphocytes % (auto) 18.1 % (10.0-50.0); Mean Corpuscular Hemoglobin 35.8 pg (28.0-32.0); Mean Corpuscular Hgb Conc. 35.9 g/dL (32.0-36.0); Mean Corpuscular Volume 99.9 fL (80.0-100.0); Monocytes # (auto) 0.5 10 ^3/uL (0-1.3); Monocytes % (auto) 9.3 % (0.0-12.0); Neutrophils # (auto) 3.8 10 ^3/uL (1.6-8.6); Neutrophils % (auto) 70.2 % (37.0-80.0); Nucleated Red Blood Cells % 0.1 %; Red Blood Cells 3.08 10^6/uL (4.5-5.90); Red Cell Distribution Width 17.1 % (11.8-14.3); White Blood Cell 5.4 10^3/uL (4.4-10.8)
[2021-04-25 07:15] LABS: Albumin 3.3 g/dL (3.4-5.0); BUN/Creatinine Ratio 20.6; Bilirubin, Total 0.6 mg/dL (0.2-1.0); Total Protein 7.4 g/dL (6.4-8.2)
[2021-04-25 07:22] LABS: INR 2.73 (0.9-1.15)
[2021-04-25 08:31] VITALS: BP 103/52
[2021-04-25] MEDS: AMIODARONE HCL 200 MG TAB PO SCH (09:54)
[2021-04-25] MEDS: PANTOPRAZOLE 40 MG/10 ML VIAL INJ IV SCH (09:54)
[2021-04-25] MEDS: LACTULOSE 20Gm/30ML SOLN PO SCH (09:54)
[2021-04-25] MEDS: FUROSEMIDE 20 MG TAB PO SCH (09:54)
[2021-04-25] MEDS ORDERED: ONDA-144 PO (11:37)
[2021-04-25 12:59] VITALS: BP 103/52
[2021-04-25 13:00] VITALS: BP 115/53
== END 2021-04-25 15:07 | disposition home or self-care (01) | DRG 433 ==
LOC: ER 23:15 → OVERFLOW 04-24 06:22 → CENTRAL 04-24 11:18
PROVIDERS: ADMIT Nurse Practitioner; ATTEND Internal Medicine
DX: K74.60 Unspecified cirrhosis of liver (principal); I48.20 Chronic atrial fibrillation, unspecified; D68.9 Coagulation defect, unspecified; K76.6 Portal hypertension; K72.90 Hepatic failure, unspecified without coma; I50.9 Heart failure, unspecified; D69.6 Thrombocytopenia, unspecified; K21.9 Gastro-esophageal reflux disease without esophagitis; E11.9 Type 2 diabetes mellitus without complications; I11.0 Hypertensive heart disease with heart failure; E66.9 Obesity, unspecified; K59.00 Constipation, unspecified; Z20.822 Contact with and (suspected) exposure to COVID-19; E78.5 Hyperlipidemia, unspecified; Z82.49 Family history of ischemic heart disease and other diseases of the circulatory system; Z82.3 Family history of stroke; Z79.01 Long term (current) use of anticoagulants; Z83.3 Family history of diabetes mellitus; Z95.0 Presence of cardiac pacemaker
CPT/HCPCS: 36415; 74177; 80053; 82140; 82962; 83605; 83690; 84484; 85025; 85610; 85730; 87426; 87804; 96361; 96374; 96375; C9113; G0378; J1815; J2405; J3490

== ENCOUNTER 2022-01-20 15:39 | Inpatient (IN) | payer OTHER ==
[~2022-01-20] VITALS: Ht 162.6 cm; Wt 84.9 kg
[~2022-01-20 15:39] MED LIST changes: -ALBUAER3 IN; -AMIO200T33 PO; -FURO1TAB33 PO; +FURO40TA4 PO; -LISI-275 PO; +LISI20TA28 PO; -METF-489 PO; +ONDA-144 PO; -POTA-167 PO; +POTA1TAB4 PO
[2022-01-20 16:52] LABS: Basophils # (auto) 0 10 ^3/uL (0-0.2); Eosinophils # (auto) 0.1 10 ^3/uL (0-0.8)
[2022-01-20 16:53] LABS: Basophils % (auto) 0.5 % (0.0-2.0); Hematocrit 25.1 % (41.0-53.0); Hemoglobin 8.1 g/dL (13.5-17.5); Lymphocytes # (auto) 0.7 10 ^3/uL (0.4-5.4); Lymphocytes % (auto) 9.6 % (10.0-50.0); Mean Corpuscular Hemoglobin 30.8 pg (28.0-32.0); Mean Corpuscular Hgb Conc. 32.3 g/dL (32.0-36.0); Mean Corpuscular Volume 95.5 fL (80.0-100.0); Monocytes # (auto) 0.8 10 ^3/uL (0-1.3); Monocytes % (auto) 10.7 % (0.0-12.0); Neutrophils # (auto) 5.8 10 ^3/uL (1.6-8.6); Neutrophils % (auto) 78.2 % (37.0-80.0); Red Blood Cells 2.63 10^6/uL (4.5-5.90); Red Cell Distribution Width 19.4 % (11.8-14.3); White Blood Cell 7.5 10^3/uL (4.4-10.8)
[2022-01-20 17:12] LABS: Albumin 2.7 g/dL (3.4-5.0); Calcium 8.2 mg/dL (8.5-10.1)
[2022-01-20 17:14] LABS: BUN/Creatinine Ratio 28.8
[2022-01-20 17:28] LABS: Bilirubin, Total 0.4 mg/dL (0.2-1.0); Total Protein 7.5 g/dL (6.4-8.2)
[2022-01-20 17:38] LABS: INR 1.16 (0.9-1.15); Partial Thromboplastin Time 35.1 sec (24.6-33.4)
[2022-01-20] MEDS ORDERED: FUROSEMIDE 40 MG/4 ML VIAL IV ONE ×2 (17:45→20:00)
[2022-01-20] MEDS ORDERED: NITROGLYCERIN 0.4 MG SL TAB SL PRN (20:00)
[2022-01-20] MEDS ORDERED: ACETAMINOPHEN 325 MG TAB PO PRN (20:00)
[2022-01-20] MEDS ORDERED: MORPHINE SULFATE INJ 2 MG/ml SYRG IV PRN ×2 (20:00)
[2022-01-20] MEDS ORDERED: HYDROcodone-ACET 5/325MG TAB PO PRN (20:00)
[2022-01-20] MEDS ORDERED: DEXTROSE (50%) 50ML SYRG IV PRN (20:00)
[2022-01-20 20:47] LABS: Cholesterol 107 mg/dL (< 200); HDL Cholesterol 42 mg/dL (40-59); LDL Cholesterol 69 mg/dL (< 100); Triglycerides 51 mg/dL (< 150)
[2022-01-20] MEDS: InsuLIN REG 1unit/0.01ml Soln (100units/ml) SC SCH (22:56)
[2022-01-20] MEDS: ACCU-CHEK COMFORT CURVE STRIP VI SCH (22:56)
[2022-01-20] MEDS: PATIENTS OWN MEDICATION (Lovastatin 1 TAB) PO SCH (22:58)
[2022-01-21 02:02] VITALS: BP 103/60
[2022-01-21 05:00] VITALS: BP 120/52
[2022-01-21 05:01] LABS: Basophils # (auto) 0 10 ^3/uL (0-0.2); Eosinophils # (auto) 0.1 10 ^3/uL (0-0.8); Hemoglobin 7.6 g/dL (13.5-17.5); Lymphocytes # (auto) 0.8 10 ^3/uL (0.4-5.4); Neutrophils # (auto) 4.2 10 ^3/uL (1.6-8.6); White Blood Cell 5.8 10^3/uL (4.4-10.8)
[2022-01-21 05:03] LABS: Basophils % (auto) 0.7 % (0.0-2.0); Eosinophils % (auto) 1.5 % (0.0-7.0); Hematocrit 22.5 % (41.0-53.0); Lymphocytes % (auto) 14.4 % (10.0-50.0); Mean Corpuscular Hemoglobin 31.9 pg (28.0-32.0); Mean Corpuscular Hgb Conc. 33.9 g/dL (32.0-36.0); Mean Corpuscular Volume 94.2 fL (80.0-100.0); Monocytes # (auto) 0.6 10 ^3/uL (0-1.3); Neutrophils % (auto) 72.4 % (37.0-80.0); Red Blood Cells 2.39 10^6/uL (4.5-5.90); Red Cell Distribution Width 18.9 % (11.8-14.3)
[2022-01-21 05:17] LABS: Albumin 2.6 g/dL (3.4-5.0); BUN/Creatinine Ratio 31.1; Calcium 8.1 mg/dL (8.5-10.1); Potassium 4.4 mmol/L (3.5-5.1)
[2022-01-21 05:21] LABS: Bilirubin, Total 0.6 mg/dL (0.2-1.0); Total Protein 7.4 g/dL (6.4-8.2)
[2022-01-21] MEDS: ACCU-CHEK COMFORT CURVE STRIP VI SCH ×4 (07:00→21:57)
[2022-01-21] MEDS: InsuLIN REG 1unit/0.01ml Soln (100units/ml) SC SCH ×4 (07:00→21:59)
[2022-01-21 09:00] VITALS: BP 105/50
[2022-01-21] MEDS: FUROSEMIDE 20 MG/2 ML VIAL IV SCH (09:45)
[2022-01-21] MEDS: LISINOPRIL 20 MG TAB PO SCH (09:45)
[2022-01-21] MEDS ORDERED: ATENOLOL 50 MG TAB PO SCH (10:00)
[2022-01-21] MEDS ORDERED: POTASSIUM CHL 20 Meq TABLET PO SCH (10:00)
[2022-01-21] MEDS ORDERED: ASPirin 81 mg TAB PO SCH (10:00)
[2022-01-21] MEDS ORDERED: ENOXAPARIN SOD 40 MG/0.4 ML SYRINGE SC SCH (10:00)
[2022-01-21] MEDS ORDERED: POLYETHYLENE GLYCOL 17 GM PWDR PO PRN (11:30)
[2022-01-21 17:00] VITALS: BP 108/81
[2022-01-21 20:00] VITALS: BP 123/57
[2022-01-21 22:00] VITALS: BP 123/57
[2022-01-21] MEDS: PATIENTS OWN MEDICATION (Lovastatin 1 TAB) PO SCH (22:00)
[2022-01-22] MEDS ORDERED: ONDANSETRON HCL 4 MG/2 ML VIAL IV PRN (00:45)
[2022-01-22 04:24] LABS: Basophils # (auto) 0 10 ^3/uL (0-0.2); Basophils % (auto) 0.7 % (0.0-2.0); Eosinophils # (auto) 0.1 10 ^3/uL (0-0.8); Eosinophils % (auto) 1.4 % (0.0-7.0); Hematocrit 22.1 % (41.0-53.0); Hemoglobin 7.6 g/dL (13.5-17.5); Red Blood Cells 2.29 10^6/uL (4.5-5.90); White Blood Cell 5.7 10^3/uL (4.4-10.8)
[2022-01-22 04:26] LABS: Lymphocytes # (auto) 0.7 10 ^3/uL (0.4-5.4); Lymphocytes % (auto) 13.2 % (10.0-50.0); Mean Corpuscular Hemoglobin 33.3 pg (28.0-32.0); Mean Corpuscular Hgb Conc. 34.4 g/dL (32.0-36.0); Mean Corpuscular Volume 96.8 fL (80.0-100.0); Monocytes # (auto) 0.7 10 ^3/uL (0-1.3); Monocytes % (auto) 11.8 % (0.0-12.0); Neutrophils # (auto) 4.1 10 ^3/uL (1.6-8.6); Neutrophils % (auto) 72.9 % (37.0-80.0); Red Cell Distribution Width 19.4 % (11.8-14.3)
[2022-01-22 04:40] LABS: Calcium 8.4 mg/dL (8.5-10.1); Potassium 5.1 mmol/L (3.5-5.1)
[2022-01-22 05:00] VITALS: BP 125/56
[2022-01-22] MEDS: ACCU-CHEK COMFORT CURVE STRIP VI SCH ×3 (06:33→17:32)
[2022-01-22] MEDS: InsuLIN REG 1unit/0.01ml Soln (100units/ml) SC SCH ×3 (06:37→17:48)
[2022-01-22 08:52] VITALS: BP 99/61
[2022-01-22] MEDS: FUROSEMIDE 20 MG/2 ML VIAL IV SCH (09:43)
[2022-01-22] MEDS: LISINOPRIL 20 MG TAB PO SCH (09:44)
[2022-01-22] MEDS ORDERED: POTASSIUM CHL 20 Meq TABLET PO SCH (10:00)
[2022-01-22 13:00] VITALS: BP 108/46
[2022-01-22 16:35] VITALS: BP 123/48
[2022-01-22] MEDS ORDERED: AMOX-277 PO (16:39)
== END 2022-01-22 20:58 | disposition hospice, home (50) | DRG 189 ==
LOC: EDBD 15:39 → ER 15:39 → TELE 19:54 → TELE-EAST 01-21 01:00
PROVIDERS: ADMIT Registered Nurse; ATTEND Internal Medicine
DX: J96.01 Acute respiratory failure with hypoxia (principal); E43 Unspecified severe protein-calorie malnutrition; I50.33 Acute on chronic diastolic (congestive) heart failure; J91.8 Pleural effusion in other conditions classified elsewhere; D68.59 Other primary thrombophilia; I11.0 Hypertensive heart disease with heart failure; E78.5 Hyperlipidemia, unspecified; I48.91 Unspecified atrial fibrillation; Z20.822 Contact with and (suspected) exposure to COVID-19; D64.9 Anemia, unspecified; E11.9 Type 2 diabetes mellitus without complications; K74.60 Unspecified cirrhosis of liver; Z68.32 Body mass index [BMI] 32.0-32.9, adult; Z95.0 Presence of cardiac pacemaker; Z82.49 Family history of ischemic heart disease and other diseases of the circulatory system
CPT/HCPCS: 36415; 71045; 76604; 80048; 80053; 80061; 82270; 82962; 83036; 83880; 84443; 84484; 85025; 85610; 85730; 86850; 86900; 86901; 87426; 87804; 93005; 93306; 96374; G0378; J1815; J2405

== ENCOUNTER 2022-06-03 08:22 | Inpatient (IN) | payer OTHER ==
[~2022-06-03] VITALS: Ht 165.1 cm; Wt 88.7 kg
[2022-06-03] VITALS (10 sets, daily range): BP systolic 100–133; BP diastolic 25–40
[~2022-06-03 08:22] MED LIST changes: +AMOX-277 PO; -ATE50T PO; -WARF3TAB22 PO
[2022-06-03] MEDS ORDERED: SODIUM CHLORIDE 0.9% 1,000 ML IV ONE (08:30)
[2022-06-03 08:55] LABS: Basophils # (auto) 0.1 10 ^3/uL (0-0.2); Eosinophils # (auto) 0 10 ^3/uL (0-0.8); Hemoglobin 7.9 g/dL (13.5-17.5); Monocytes # (auto) 0.9 10 ^3/uL (0-1.3)
[2022-06-03 08:57] LABS: Basophils % (auto) 1.1 % (0.0-2.0); Eosinophils % (auto) 0.3 % (0.0-7.0); Hematocrit 23.5 % (41.0-53.0); Lymphocytes # (auto) 0.9 10 ^3/uL (0.4-5.4); Lymphocytes % (auto) 8.8 % (10.0-50.0); Mean Corpuscular Hemoglobin 31.9 pg (28.0-32.0); Mean Corpuscular Hgb Conc. 33.5 g/dL (32.0-36.0); Monocytes % (auto) 9.8 % (0.0-12.0); Neutrophils # (auto) 7.8 10 ^3/uL (1.6-8.6); Nucleated Red Blood Cells % 0.1 %; Red Blood Cells 2.48 10^6/uL (4.5-5.90); Red Cell Distribution Width 18.9 % (11.8-14.3); White Blood Cell 9.7 10^3/uL (4.4-10.8)
[2022-06-03 09:15] LABS: Albumin 2.7 g/dL (3.4-5.0)
[2022-06-03 09:18] LABS: BUN/Creatinine Ratio 16.4 (10.0-20.0); Bilirubin, Total 0.4 mg/dL (0.2-1.0); Total Protein 7.2 g/dL (6.4-8.2)
[2022-06-03 10:06] LABS: Urine Bacteria NONE SEEN /hpf (None Seen); Urine Blood 2+ /uL (Negative); Urine Hyaline Cast FEW /lpf (0 - 2); Urine Specific Gravity 1.021 (1.001-1.035); Urine WBC 13 /hpf (0 - 3)
[2022-06-03 10:20] LABS: Potassium 6.3 mmol/L (3.5-5.1)
[2022-06-03] MEDS ORDERED: CALCIUM GLUC 1,000mg/50ml-NS 50 ML IV ONE (10:30)
[2022-06-03] MEDS ORDERED: ALBUTEROL SULF 2.5 MG/0.5ML(0.5%) NEB SOLN NEB ONE (10:30)
[2022-06-03] MEDS ORDERED: InsuLIN REG 1unit/0.01ml Soln (100units/ml) IV ONE (10:30)
[2022-06-03] MEDS ORDERED: SODIUM BICARBONATE 8.4% INJ 50ML SYRINGE IV ONE (10:30)
[2022-06-03] MEDS ORDERED: SODIUM BICARBONATE 50ML VIAL 150 ML in D5W 5% 1,000 ML IV ONE (10:30)
[2022-06-03] MEDS ORDERED: DEXTROSE (50%) 50ML SYRG IV ONE (10:30)
[2022-06-03] MEDS ORDERED: FUROSEMIDE 20 MG/2 ML VIAL IV ONE (10:30)
[2022-06-03] MEDS ORDERED: SODIUM ZIRCONIUM CYCL 10 GM PAK PO ONE (10:30)
[2022-06-03] MEDS ORDERED: NOREPINEPHRINE 8 MG/250ML KIT 250 ML IV ONE (12:14)
[2022-06-03] MEDS ORDERED: LACTULOSE 20Gm/30ML SOLN PO ONE (12:15)
[2022-06-03] MEDS: NOREPINEPHRINE 8 MG/250ML KIT 250 ML IV SCH (12:20)
[2022-06-03] MEDS ORDERED: LACTULOSE 10g/15ml SOLN 473ML PR ONE (13:00)
[2022-06-03 14:09] LABS: BUN/Creatinine Ratio 16.7 (10.0-20.0); Calcium 8.6 mg/dL (8.5-10.1); Potassium 5.4 mmol/L (3.5-5.1)
[2022-06-03] MEDS ORDERED: IPRATROPIUM BROM 0.5 MG/2.5ML INH SOL NEB PRN (15:30)
[2022-06-03] MEDS ORDERED: ALBUMIN 5% 50 ML IV ONE (15:30)
[2022-06-03] MEDS ORDERED: NITROGLYCERIN 0.4 MG SL TAB SL PRN (15:30)
[2022-06-03] MEDS ORDERED: ALBUTEROL SULF 2.5 MG/0.5ML(0.5%) NEB SOLN NEB PRN (15:30)
[2022-06-03] MEDS ORDERED: ONDANSETRON HCL 4 MG/2 ML VIAL IV PRN (15:30)
[2022-06-03] MEDS ORDERED: MORPHINE SULFATE INJ 2 MG/ml SYRG IV PRN (15:30)
[2022-06-03] MEDS: LACTULOSE 10g/15ml SOLN 473ML PR SCH (18:06)
[2022-06-03 20:30] LABS: BUN/Creatinine Ratio 18.4 (10.0-20.0); Calcium 8.6 mg/dL (8.5-10.1); Potassium 5.5 mmol/L (3.5-5.1)
[2022-06-03] MEDS ORDERED: SODIUM BICARBONATE 8.4 % INJ 50ML VIAL IV ONE (21:39)
[2022-06-04] VITALS (78 sets, daily range): BP systolic 88–150; BP diastolic 24–104
[2022-06-04] MEDS ORDERED: LACTULOSE 20Gm/30ML SOLN ONE (00:46)
[2022-06-04 03:31] LABS: Basophils # (auto) 0 10 ^3/uL (0-0.2); Basophils % (auto) 0.2 % (0.0-2.0); Eosinophils # (auto) 0.1 10 ^3/uL (0-0.8); Eosinophils % (auto) 0.5 % (0.0-7.0); Hematocrit 27.3 % (41.0-53.0); Hemoglobin 9.3 g/dL (13.5-17.5); Mean Corpuscular Hemoglobin 32.3 pg (28.0-32.0); Mean Corpuscular Hgb Conc. 34.2 g/dL (32.0-36.0); Mean Corpuscular Volume 94.4 fL (80.0-100.0); Monocytes # (auto) 1.4 10 ^3/uL (0-1.3); Monocytes % (auto) 10.3 % (0.0-12.0); Neutrophils # (auto) 11.1 10 ^3/uL (1.6-8.6); Red Blood Cells 2.89 10^6/uL (4.5-5.90); Red Cell Distribution Width 18.9 % (11.8-14.3); White Blood Cell 13.6 10^3/uL (4.4-10.8)
[2022-06-04 03:49] LABS: Calcium 8.7 mg/dL (8.5-10.1)
[2022-06-04 03:53] LABS: Albumin 2.8 g/dL (3.4-5.0); BUN/Creatinine Ratio 20.1 (10.0-20.0)
[2022-06-04 03:55] LABS: Bilirubin, Total 0.7 mg/dL (0.2-1.0); Total Protein 8.3 g/dL (6.4-8.2)
[2022-06-04] MEDS: NOREPINEPHRINE 8 MG/250ML KIT 250 ML IV SCH ×3 (05:07→21:00)
[2022-06-04] MEDS: LACTULOSE 10g/15ml SOLN 473ML PR SCH ×4 (11:38→18:12)
[2022-06-04] MEDS: PIPERACILLIN-TAZOB 2.25GM 50 ML IV SCH ×2 (14:06→21:59)
[2022-06-04] MEDS ORDERED: MORPHINE SULFATE INJ 2 MG/ml SYRG IV ONE (21:45)
[2022-06-05] VITALS (62 sets, daily range): BP systolic 89–152; BP diastolic 26–92
[2022-06-05] MEDS: LACTULOSE 10g/15ml SOLN 473ML PR SCH ×2 (00:21→06:00)
[2022-06-05 04:29] LABS: BUN/Creatinine Ratio 23.4 (10.0-20.0); Calcium 8.6 mg/dL (8.5-10.1); Potassium 4.7 mmol/L (3.5-5.1)
[2022-06-05 05:18] LABS: Eosinophils # (auto) 0 10 ^3/uL (0-0.8); Eosinophils % (auto) 0.4 % (0.0-7.0); Lymphocytes # (auto) 0.8 10 ^3/uL (0.4-5.4); Monocytes # (auto) 0.9 10 ^3/uL (0-1.3)
[2022-06-05 05:20] LABS: Basophils # (auto) 0.1 10 ^3/uL (0-0.2); Basophils % (auto) 0.6 % (0.0-2.0); Hematocrit 23.9 % (41.0-53.0); Lymphocytes % (auto) 8.4 % (10.0-50.0); Mean Corpuscular Hemoglobin 32.5 pg (28.0-32.0); Mean Corpuscular Hgb Conc. 33.6 g/dL (32.0-36.0); Mean Corpuscular Volume 96.7 fL (80.0-100.0); Neutrophils # (auto) 7.9 10 ^3/uL (1.6-8.6); Neutrophils % (auto) 81.6 % (37.0-80.0); Red Blood Cells 2.48 10^6/uL (4.5-5.90); Red Cell Distribution Width 18.9 % (11.8-14.3); White Blood Cell 9.6 10^3/uL (4.4-10.8)
[2022-06-05] MEDS: PIPERACILLIN-TAZOB 2.25GM 50 ML IV SCH ×3 (06:00→21:05)
[2022-06-05] MEDS: LACTULOSE 20Gm/30ML SOLN PO SCH ×4 (09:48→21:05)
[2022-06-05] MEDS: MIDODRINE HCL 10 MG TAB PO SCH ×2 (12:25→17:54)
[2022-06-05] MEDS ORDERED: DEXTROSE 10% 250 ML IV ONE (22:43)
[2022-06-05] MEDS: LORazepam 2MG/ML-1ML VIAL IV PRN (23:09)
[2022-06-06] VITALS (27 sets, daily range): BP systolic 100–131; BP diastolic 33–56
[2022-06-06] MEDS: LACTULOSE 20Gm/30ML SOLN PO SCH ×6 (01:29→21:10)
[2022-06-06] MEDS: MIDODRINE HCL 10 MG TAB PO SCH ×3 (05:38→18:06)
[2022-06-06] MEDS: PIPERACILLIN-TAZOB 2.25GM 50 ML IV SCH ×3 (06:26→21:10)
[2022-06-06 08:05] LABS: Basophils # (auto) 0 10 ^3/uL (0-0.2); Basophils % (auto) 0.5 % (0.0-2.0); Lymphocytes # (auto) 0.4 10 ^3/uL (0.4-5.4); Monocytes # (auto) 0.6 10 ^3/uL (0-1.3); White Blood Cell 5.1 10^3/uL (4.4-10.8)
[2022-06-06 08:07] LABS: Eosinophils # (auto) 0 10 ^3/uL (0-0.8); Eosinophils % (auto) 0.9 % (0.0-7.0); Hematocrit 18.8 % (41.0-53.0); Lymphocytes % (auto) 8.2 % (10.0-50.0); Mean Corpuscular Hgb Conc. 33.9 g/dL (32.0-36.0); Mean Corpuscular Volume 97.5 fL (80.0-100.0); Monocytes % (auto) 11.3 % (0.0-12.0); Neutrophils % (auto) 79.1 % (37.0-80.0); Nucleated Red Blood Cells % 0.1 %; Red Blood Cells 1.93 10^6/uL (4.5-5.90)
[2022-06-06 08:15] LABS: Hemoglobin 6.4 g/dL (13.5-17.5)
[2022-06-06 08:21] LABS: BUN/Creatinine Ratio 22.3 (10.0-20.0); Calcium 7.8 mg/dL (8.5-10.1); Potassium 4.2 mmol/L (3.5-5.1)
[2022-06-06 09:05] LABS: Basophils # (auto) 0 10 ^3/uL (0-0.2); Eosinophils # (auto) 0.1 10 ^3/uL (0-0.8); Lymphocytes # (auto) 0.7 10 ^3/uL (0.4-5.4); Lymphocytes % (auto) 10.7 % (10.0-50.0); Monocytes # (auto) 0.7 10 ^3/uL (0-1.3); Neutrophils # (auto) 4.7 10 ^3/uL (1.6-8.6); Nucleated Red Blood Cells % 0.1 %; Red Blood Cells 2.21 10^6/uL (4.5-5.90); White Blood Cell 6.1 10^3/uL (4.4-10.8)
[2022-06-06 09:07] LABS: Basophils % (auto) 0.7 % (0.0-2.0); Hematocrit 21.4 % (41.0-53.0); Hemoglobin 7.2 g/dL (13.5-17.5); Mean Corpuscular Hemoglobin 32.7 pg (28.0-32.0); Mean Corpuscular Hgb Conc. 33.9 g/dL (32.0-36.0); Mean Corpuscular Volume 96.6 fL (80.0-100.0); Monocytes % (auto) 10.6 % (0.0-12.0); Red Cell Distribution Width 18.7 % (11.8-14.3)
[2022-06-06] MEDS: NOREPINEPHRINE 8 MG/250ML KIT 250 ML IV SCH (12:15)
[2022-06-07] VITALS (22 sets, daily range): BP systolic 107–139; BP diastolic 38–60
[2022-06-07] MEDS: LACTULOSE 20Gm/30ML SOLN PO SCH ×6 (02:50→22:21)
[2022-06-07 03:47] LABS: Basophils # (auto) 0 10 ^3/uL (0-0.2); Eosinophils # (auto) 0.1 10 ^3/uL (0-0.8); Hemoglobin 7.1 g/dL (13.5-17.5); Lymphocytes # (auto) 0.5 10 ^3/uL (0.4-5.4); Monocytes # (auto) 0.5 10 ^3/uL (0-1.3)
[2022-06-07 03:48] LABS: Basophils % (auto) 0.4 % (0.0-2.0); Hematocrit 20.8 % (41.0-53.0); Lymphocytes % (auto) 11.6 % (10.0-50.0); Mean Corpuscular Hemoglobin 33.8 pg (28.0-32.0); Mean Corpuscular Hgb Conc. 34.3 g/dL (32.0-36.0); Mean Corpuscular Volume 98.4 fL (80.0-100.0); Monocytes % (auto) 12.8 % (0.0-12.0); Neutrophils # (auto) 2.9 10 ^3/uL (1.6-8.6); Neutrophils % (auto) 73.2 % (37.0-80.0); Red Blood Cells 2.11 10^6/uL (4.5-5.90); Red Cell Distribution Width 18.7 % (11.8-14.3)
[2022-06-07 03:56] LABS: Calcium 8.2 mg/dL (8.5-10.1)
[2022-06-07 03:58] LABS: BUN/Creatinine Ratio 18.4 (10.0-20.0)
[2022-06-07] MEDS: PIPERACILLIN-TAZOB 2.25GM 50 ML IV SCH ×4 (06:29→20:39)
[2022-06-07] MEDS: MIDODRINE HCL 10 MG TAB PO SCH ×3 (06:30→17:40)
[2022-06-07] MEDS: NOREPINEPHRINE 8 MG/250ML KIT 250 ML IV SCH (12:15)
[2022-06-08] VITALS (15 sets, daily range): BP systolic 86–127; BP diastolic 36–55
[2022-06-08] MEDS: LORazepam 2MG/ML-1ML VIAL IV PRN ×2 (00:51→22:58)
[2022-06-08] MEDS: LACTULOSE 20Gm/30ML SOLN PO SCH ×6 (01:34→22:05)
[2022-06-08] MEDS: PIPERACILLIN-TAZOB 2.25GM 50 ML IV SCH ×2 (02:55→10:12)
[2022-06-08 03:56] LABS: Basophils # (auto) 0 10 ^3/uL (0-0.2); Eosinophils # (auto) 0.1 10 ^3/uL (0-0.8); Hemoglobin 7.3 g/dL (13.5-17.5); White Blood Cell 5.5 10^3/uL (4.4-10.8)
[2022-06-08 03:59] LABS: Basophils % (auto) 0.5 % (0.0-2.0); Eosinophils % (auto) 2.3 % (0.0-7.0); Hematocrit 21.4 % (41.0-53.0); Lymphocytes # (auto) 0.6 10 ^3/uL (0.4-5.4); Lymphocytes % (auto) 11.8 % (10.0-50.0); Mean Corpuscular Hgb Conc. 33.9 g/dL (32.0-36.0); Mean Corpuscular Volume 97.4 fL (80.0-100.0); Monocytes # (auto) 0.7 10 ^3/uL (0-1.3); Monocytes % (auto) 12.1 % (0.0-12.0); Neutrophils % (auto) 73.3 % (37.0-80.0); Nucleated Red Blood Cells % 0.2 %; Red Cell Distribution Width 19.2 % (11.8-14.3)
[2022-06-08 04:31] LABS: Calcium 8.5 mg/dL (8.5-10.1); Potassium 4.1 mmol/L (3.5-5.1)
[2022-06-08 04:40] LABS: BUN/Creatinine Ratio 16.7 (10.0-20.0)
[2022-06-08] MEDS: MIDODRINE HCL 10 MG TAB PO SCH ×3 (06:17→17:52)
[2022-06-08] MEDS: NOREPINEPHRINE 8 MG/250ML KIT 250 ML IV SCH (12:07)
[2022-06-08] MEDS: PIPERACILLIN-TAZOB 3.375GM 100 ML IV SCH ×2 (15:02→22:05)
[2022-06-08] MEDS ORDERED: traMADol HCL 50 MG TAB PO ONE (18:45)
[2022-06-08] MEDS ORDERED: ACETAMINOPHEN 500 MG TAB PO ONE (18:45)
[2022-06-09] MEDS: LACTULOSE 20Gm/30ML SOLN PO SCH ×3 (02:17→09:15)
[2022-06-09 05:00] VITALS: BP_SYST 127; BP_SYST 128; BP_DIAS 70
[2022-06-09] MEDS: MIDODRINE HCL 10 MG TAB PO SCH ×3 (05:16→18:00)
[2022-06-09] MEDS: PIPERACILLIN-TAZOB 3.375GM 100 ML IV SCH ×2 (05:42→14:54)
[2022-06-09 06:47] LABS: Basophils # (auto) 0 10 ^3/uL (0-0.2); Eosinophils # (auto) 0.2 10 ^3/uL (0-0.8); Hematocrit 22.3 % (41.0-53.0); Lymphocytes # (auto) 0.8 10 ^3/uL (0.4-5.4); Mean Corpuscular Hgb Conc. 34.8 g/dL (32.0-36.0); Monocytes # (auto) 0.5 10 ^3/uL (0-1.3); Red Blood Cells 2.31 10^6/uL (4.5-5.90); White Blood Cell 5.8 10^3/uL (4.4-10.8)
[2022-06-09 06:49] LABS: Basophils % (auto) 0.6 % (0.0-2.0); Eosinophils % (auto) 2.7 % (0.0-7.0); Hemoglobin 7.7 g/dL (13.5-17.5); Lymphocytes % (auto) 13.6 % (10.0-50.0); Mean Corpuscular Hemoglobin 33.6 pg (28.0-32.0); Mean Corpuscular Volume 96.6 fL (80.0-100.0); Monocytes % (auto) 8.2 % (0.0-12.0); Neutrophils # (auto) 4.4 10 ^3/uL (1.6-8.6); Neutrophils % (auto) 74.9 % (37.0-80.0); Red Cell Distribution Width 17.9 % (11.8-14.3)
[2022-06-09 09:00] VITALS: BP 140/47
[2022-06-09] MEDS ORDERED: LACT10PA2 PO (11:58)
[2022-06-09] MEDS ORDERED: MIDO5TAB3 PO (11:58)
[2022-06-09] MEDS ORDERED: DOXY-346 PO (11:58)
[2022-06-09 13:00] VITALS: BP 138/49
[2022-06-09] MEDS ORDERED: LACTULOSE 20Gm/30ML SOLN PO SCH (14:00)
[2022-06-09 17:00] VITALS: BP 128/65
[2022-06-09 18:06] VITALS: BP 128/65
== END 2022-06-09 19:36 | disposition hospice, home (50) | DRG 871 ==
LOC: ER 08:22 → EDBD 08:22 → TELE 15:34 → ICU WEST 21:19 → TELE-WESTW 06-08 16:40
PROVIDERS: ADMIT Nurse Practitioner Acute Care; ATTEND Nurse Practitioner Acute Care
PROC: 02HV33Z Insertion of Infusion Device into Superior Vena Cava, Percutaneous Approach (ICD-10-PCS; principal; 2022-06-04)
DX: A41.9 Sepsis, unspecified organism (principal); G93.41 Metabolic encephalopathy; J69.0 Pneumonitis due to inhalation of food and vomit; R65.21 Severe sepsis with septic shock; N17.0 Acute kidney failure with tubular necrosis; I50.43 Acute on chronic combined systolic (congestive) and diastolic (congestive) heart failure; I13.0 Hypertensive heart and chronic kidney disease with heart failure and stage 1 through stage 4 chronic kidney disease, or unspecified chronic kidney disease; E44.0 Moderate protein-calorie malnutrition; I42.0 Dilated cardiomyopathy; N18.4 Chronic kidney disease, stage 4 (severe); E78.00 Pure hypercholesterolemia, unspecified; I48.91 Unspecified atrial fibrillation; D64.9 Anemia, unspecified; E87.5 Hyperkalemia; K70.30 Alcoholic cirrhosis of liver without ascites; E11.22 Type 2 diabetes mellitus with diabetic chronic kidney disease; R79.1 Abnormal coagulation profile; K76.82 Hepatic encephalopathy; D69.6 Thrombocytopenia, unspecified; Z20.822 Contact with and (suspected) exposure to COVID-19; E66.9 Obesity, unspecified; Z79.2 Long term (current) use of antibiotics; Z79.899 Other long term (current) drug therapy; Z79.01 Long term (current) use of anticoagulants; Z82.49 Family history of ischemic heart disease and other diseases of the circulatory system; Z68.32 Body mass index [BMI] 32.0-32.9, adult; Z83.3 Family history of diabetes mellitus; Z82.3 Family history of stroke
CPT/HCPCS: 36415; 70450; 71045; 76705; 76775; 80048; 80053; 81001; 82140; 82270; 82962; 83605; 83880; 84132; 84484; 85025; 87040; 87081; 87426; 93005; 94640; 96361; 96365; 96375; 97163; G0378; J1815; J2543

== ENCOUNTER 2022-07-03 18:58 | Inpatient (IN) | payer OTHER ==
[~2022-07-03] VITALS: Ht 172.7 cm; Wt 79.4 kg
[~2022-07-03 18:58] MED LIST changes: +DOXY-346 PO; +LACT10PA2 PO; +MIDO5TAB3 PO
[2022-07-03 20:24] LABS: Hemoglobin 9.2 g/dL (13.5-17.5); White Blood Cell 6.5 10^3/uL (4.4-10.8)
[2022-07-03 20:27] LABS: Mean Corpuscular Hemoglobin 32.9 pg (28.0-32.0); Mean Corpuscular Hgb Conc. 34.2 g/dL (32.0-36.0); Mean Corpuscular Volume 96.2 fL (80.0-100.0); Red Blood Cells 2.81 10^6/uL (4.5-5.90); Red Cell Distribution Width 17.2 % (11.8-14.3)
[2022-07-03] MEDS ORDERED: ACETAMINOPHEN 650 MG RECT SUPP PR ONE (20:30)
[2022-07-03 20:35] LABS: Basophils % (manual) 0 (0.0-2.0); Blast Cells 0; Eosinophils % (manual) 0 (0-7); Metamyelocytes % 0; Myelocytes % 0; Promyelocytes % 0; Reactive Lymphocytes 0
[2022-07-03] MEDS ORDERED: NALOXONE HCL 1MG/ML 2ML SYRINGE ONE ×2 (20:41→22:07)
[2022-07-03 20:43] LABS: Urine Bacteria MOD /hpf (None Seen); Urine Blood 2+ /uL (Negative); Urine Mucus FEW (None Seen); Urine Specific Gravity 1.016 (1.001-1.035); Urine WBC 17 /hpf (0 - 3)
[2022-07-03] MEDS ORDERED: NALOXONE HCL 1MG/ML 2ML SYRINGE IV ONE ×2 (20:45→22:00)
[2022-07-03] MEDS ORDERED: PIPERACILLIN-TAZOB 3.375GM 100 ML IV ONE (21:00)
[2022-07-03] MEDS ORDERED: PANTOPRAZOLE 40 MG/10 ML VIAL INJ IV ONE (21:15)
[2022-07-03] MEDS ORDERED: MORPHINE SULFATE INJ 2 MG/ml SYRG IV PRN (21:15)
[2022-07-03] MEDS ORDERED: DEXTROSE (50%) 50ML SYRG IV PRN (21:15)
[2022-07-03] MEDS ORDERED: NITROGLYCERIN 0.4 MG SL TAB SL PRN (21:15)
[2022-07-03 21:28] LABS: Albumin 2.6 g/dL (3.4-5.0); Magnesium 2.4 mg/dL (1.6-2.6); Potassium 4.5 mmol/L (3.5-5.1)
[2022-07-03 21:30] LABS: Band Neutrophils % (manual) 3; Lymphocytes % (manual) 5 (10.0-50.0); Monocytes % (manual) 12 (0-12)
[2022-07-03] MEDS ORDERED: LACTULOSE 10g/15ml SOLN 473ML PR ONE ×2 (21:30→21:45)
[2022-07-03 21:31] LABS: BUN/Creatinine Ratio 24.4 (10.0-20.0); Bilirubin, Total 0.6 mg/dL (0.2-1.0); Total Protein 7.5 g/dL (6.4-8.2)
[2022-07-03 21:42] LABS: Amphetamine Screen, Urine NEGATIVE (NEGATIVE); Barbiturate Scree,Urine NEGATIVE (NEGATIVE); Benzodiazephine Screen, Urine NEGATIVE (NEGATIVE); Cannabinoid Screen, Urine NEGATIVE (NEGATIVE); Cocaine Screen, Urine NEGATIVE (NEGATIVE); Opiate Scree,Urine POSITIVE (NEGATIVE); Phencyclidine Screen, Urine NEGATIVE (NEGATIVE)
[2022-07-03] MEDS ORDERED: ALBUTEROL SULF 2.5 MG/0.5ML(0.5%) NEB SOLN NEB PRN (21:45)
[2022-07-03] MEDS ORDERED: AZITHROMYCIN 500MG/ 250ML 250 ML IV ONE (21:45)
[2022-07-03] MEDS ORDERED: cefTRIAXone 1GM/50ML D5W 50 ML IV ONE (21:45)
[2022-07-03] MEDS: MIDODRINE HCL 10 MG TAB PO SCH (22:00)
[2022-07-03] MEDS ORDERED: IPRATROPIUM BROM 0.5 MG/2.5ML INH SOL NEB SCH (22:00)
[2022-07-03] MEDS ORDERED: ALBUTEROL SULF 2.5 MG/0.5ML(0.5%) NEB SOLN NEB SCH (22:00)
[2022-07-03] MEDS: LOVASTATIN PO SCH (22:00)
[2022-07-03] MEDS ORDERED: HEPARIN SODIUM (PORCINE) 5000 UNITS/ML 1ML VIAL SC SCH (22:00)
[2022-07-03] MEDS: SODIUM CHLORIDE 0.9% 1,000 ML IV SCH (22:12)
[2022-07-03 22:20] LABS: Cholesterol 94 mg/dL (< 200); Triglycerides 183 mg/dL (< 150)
[2022-07-03 22:23] LABS: HDL Cholesterol 17 mg/dL (40-59); LDL Cholesterol 50 mg/dL (< 100)
[2022-07-03] MEDS: ACCU-CHEK COMFORT CURVE STRIP VI SCH (23:28)
[2022-07-03] MEDS: InsuLIN REG 1unit/0.01ml Soln (100units/ml) SC SCH (23:33)
[2022-07-04] MEDS ORDERED: ALBUTEROL SULF 2.5 MG/0.5ML(0.5%) NEB SOLN NEB PRN (02:00)
[2022-07-04] MEDS ORDERED: IPRATROPIUM BROM 0.5 MG/2.5ML INH SOL NEB PRN (02:00)
[2022-07-04 02:18] VITALS: BP 141/53
[2022-07-04] MEDS: MIDODRINE HCL 10 MG TAB PO SCH ×3 (06:00→22:00)
[2022-07-04] MEDS: ACCU-CHEK COMFORT CURVE STRIP VI SCH ×4 (06:24→23:03)
[2022-07-04] MEDS: InsuLIN REG 1unit/0.01ml Soln (100units/ml) SC SCH ×4 (06:28→23:22)
[2022-07-04] MEDS: LACTULOSE 10g/15ml SOLN 473ML PR SCH ×4 (07:38→18:35)
[2022-07-04 09:45] VITALS: BP 124/50
[2022-07-04 10:00] VITALS: BP 124/50
[2022-07-04] MEDS ORDERED: FUROSEMIDE 40 MG TAB PO SCH (10:00)
[2022-07-04] MEDS ORDERED: LISINOPRIL 20 MG TAB PO SCH (10:00)
[2022-07-04] MEDS ORDERED: ENOXAPARIN SOD 40 MG/0.4 ML SYRINGE SC SCH (10:00)
[2022-07-04 10:20] LABS: Calcium 8.4 mg/dL (8.5-10.1)
[2022-07-04] MEDS: POTASSIUM CHL 20 Meq TABLET PO SCH (10:26)
[2022-07-04] MEDS: cefTRIAXone 1GM/50ML D5W 50 ML IV SCH (10:26)
[2022-07-04] MEDS: PANTOPRAZOLE 40 MG/10 ML VIAL INJ IV SCH (10:26)
[2022-07-04 10:36] LABS: BUN/Creatinine Ratio 28.4 (10.0-20.0); Potassium 3.9 mmol/L (3.5-5.1)
[2022-07-04 12:00] VITALS: BP 112/62
[2022-07-04] MEDS: AZITHROMYCIN 500MG/ 250ML 250 ML IV SCH (12:23)
[2022-07-04 13:56] LABS: Urine Bacteria NONE SEEN /hpf (None Seen); Urine Blood 3+ /uL (Negative); Urine Specific Gravity 1.016 (1.001-1.035); Urine WBC 50 /hpf (0 - 3)
[2022-07-04] MEDS: SODIUM CHLORIDE 0.9% 1,000 ML IV SCH (14:10)
[2022-07-04 16:00] VITALS: BP 129/52
[2022-07-04 16:09] LABS: Hematocrit 23.8 % (41.0-53.0); Mean Corpuscular Hemoglobin 32.2 pg (28.0-32.0); Mean Corpuscular Hgb Conc. 33.4 g/dL (32.0-36.0); Mean Corpuscular Volume 96.5 fL (80.0-100.0); Red Blood Cells 2.47 10^6/uL (4.5-5.90); Red Cell Distribution Width 17.7 % (11.8-14.3); White Blood Cell 6.1 10^3/uL (4.4-10.8)
[2022-07-04 16:12] LABS: Basophils % (manual) 0 (0.0-2.0); Blast Cells 0; Eosinophils % (manual) 0 (0-7); Metamyelocytes % 0; Myelocytes % 0; Promyelocytes % 0; Reactive Lymphocytes 0
[2022-07-04 16:44] LABS: Band Neutrophils % (manual) 12; Lymphocytes % (manual) 6 (10.0-50.0); Monocytes % (manual) 7 (0-12)
[2022-07-04 22:00] VITALS: BP 113/42
[2022-07-04] MEDS: LOVASTATIN PO SCH (22:00)
[2022-07-04 22:45] LABS: INR 1.16 (0.9-1.15)
[2022-07-05] MEDS: LACTULOSE 10g/15ml SOLN 473ML PR SCH ×3 (02:00→06:44)
[2022-07-05 05:00] VITALS: BP 122/49
[2022-07-05] MEDS: MIDODRINE HCL 10 MG TAB PO SCH ×3 (05:18→23:35)
[2022-07-05 06:13] LABS: Calcium 8.2 mg/dL (8.5-10.1); Potassium 3.6 mmol/L (3.5-5.1)
[2022-07-05 06:16] LABS: BUN/Creatinine Ratio 30.1 (10.0-20.0)
[2022-07-05] MEDS: SODIUM CHLORIDE 0.9% 1,000 ML IV SCH (06:35)
[2022-07-05] MEDS: ACCU-CHEK COMFORT CURVE STRIP VI SCH ×4 (06:44→23:20)
[2022-07-05] MEDS: InsuLIN REG 1unit/0.01ml Soln (100units/ml) SC SCH ×4 (06:44→22:00)
[2022-07-05 08:00] VITALS: BP_SYST 112; BP_DIAS 46; BP_DIAS 48
[2022-07-05] MEDS: AZITHROMYCIN 500MG/ 250ML 250 ML IV SCH (10:00)
[2022-07-05] MEDS: PANTOPRAZOLE 40 MG/10 ML VIAL INJ IV SCH (10:54)
[2022-07-05] MEDS: ASPirin 81 mg TAB PO SCH (10:54)
[2022-07-05] MEDS: cefTRIAXone 1GM/50ML D5W 50 ML IV SCH (10:54)
[2022-07-05] MEDS: POTASSIUM CHL 20 Meq TABLET PO SCH (10:55)
[2022-07-05 12:00] VITALS: BP_SYST 112; BP_SYST 136; BP_DIAS 48; BP_DIAS 60
[2022-07-05 16:00] VITALS: BP 101/31
[2022-07-05 19:54] LABS: INR 1.08 (0.9-1.15); Partial Thromboplastin Time 30.7 sec (24.6-33.4)
[2022-07-05 20:00] VITALS: BP 115/42
[2022-07-05 22:00] VITALS: BP 115/42
[2022-07-05] MEDS: LOVASTATIN PO SCH (22:00)
[2022-07-06] MEDS: SODIUM CHLORIDE 0.9% 1,000 ML IV SCH ×2 (00:22→15:08)
[2022-07-06 05:00] VITALS: BP 106/47
[2022-07-06 05:47] LABS: Calcium 7.9 mg/dL (8.5-10.1); Potassium 4.3 mmol/L (3.5-5.1)
[2022-07-06 05:49] LABS: BUN/Creatinine Ratio 31.9 (10.0-20.0)
[2022-07-06] MEDS: ACCU-CHEK COMFORT CURVE STRIP VI SCH ×3 (06:39→17:51)
[2022-07-06] MEDS: InsuLIN REG 1unit/0.01ml Soln (100units/ml) SC SCH ×3 (06:40→17:49)
[2022-07-06] MEDS: MIDODRINE HCL 10 MG TAB PO SCH ×2 (06:44→15:03)
[2022-07-06 08:00] VITALS: BP 128/39
[2022-07-06] MEDS: cefTRIAXone 1GM/50ML D5W 50 ML IV SCH (08:28)
[2022-07-06] MEDS: PANTOPRAZOLE 40 MG/10 ML VIAL INJ IV SCH (08:35)
[2022-07-06] MEDS: POTASSIUM CHL 20 Meq TABLET PO SCH (08:36)
[2022-07-06] MEDS: ASPirin 81 mg TAB PO SCH (08:36)
[2022-07-06] MEDS: AZITHROMYCIN 500MG/ 250ML 250 ML IV SCH (09:46)
[2022-07-06 12:00] VITALS: BP 120/48
[2022-07-06 16:00] VITALS: BP 117/43
[2022-07-06] MEDS: ACETAMINOPHEN 325 MG TAB PO PRN ×2 (16:44→17:52)
[2022-07-06] MEDS ORDERED: LEVO500T31 PO (18:10)
[2022-07-06 18:15] VITALS: BP 128/56
[2022-07-07 12:45] LABS: Hepatitis A Ab IgM Negative
[2022-07-07 12:46] LABS: Hepatitis B Core IgM Negative; Hepatitis C Antibody Negative (Negative)
== END 2022-07-06 20:45 | disposition home health service (06) | DRG 70 ==
LOC: ER 18:58 → EDBD 18:58 → TELE 21:15 → TELE-CENTR 07-04 09:20
PROVIDERS: ADMIT Nurse Practitioner Family; ATTEND Internal Medicine
DX: G93.41 Metabolic encephalopathy (principal); N17.0 Acute kidney failure with tubular necrosis; N39.0 Urinary tract infection, site not specified; J96.11 Chronic respiratory failure with hypoxia; I13.0 Hypertensive heart and chronic kidney disease with heart failure and stage 1 through stage 4 chronic kidney disease, or unspecified chronic kidney disease; I50.32 Chronic diastolic (congestive) heart failure; E66.01 Morbid (severe) obesity due to excess calories; Z20.822 Contact with and (suspected) exposure to COVID-19; E11.22 Type 2 diabetes mellitus with diabetic chronic kidney disease; D64.9 Anemia, unspecified; E78.5 Hyperlipidemia, unspecified; F17.200 Nicotine dependence, unspecified, uncomplicated; Z68.26 Body mass index [BMI] 26.0-26.9, adult; N18.32 Chronic kidney disease, stage 3b; K74.60 Unspecified cirrhosis of liver; R79.89 Other specified abnormal findings of blood chemistry; I48.91 Unspecified atrial fibrillation; Z79.82 Long term (current) use of aspirin; Z82.3 Family history of stroke; Z82.49 Family history of ischemic heart disease and other diseases of the circulatory system; Z83.3 Family history of diabetes mellitus; Z99.81 Dependence on supplemental oxygen; Y92.89 Other specified places as the place of occurrence of the external cause
CPT/HCPCS: 36415; 36600; 70450; 71045; 78582; 80048; 80053; 80061; 80074; 80307; 80320; 81001; 82140; 82805; 82962; 83036; 83605; 83735; 83880; 83930; 84075; 84443; 84484; 85007; 85027; 85379; 85610; 85730; 87040; 87077; 87086; 87088; 87186; 87426; 87804; 93005; 93970; 94640; 95819; 96365; 96367; 96375; 97110; 97116; 97163; 97530; 99291; C9113; G0378; J0696; J1815; J2543

== ENCOUNTER 2023-07-26 08:17 | Inpatient (IN) | payer OTHER ==
[~2023-07-26] VITALS: Ht 165.1 cm; Wt 86.6 kg
[2023-07-26] VITALS (7 sets, daily range): BP systolic 96–127; BP diastolic 39–66; PULSE 60–85; RESP 17–20; TEMP 96.9–101; O2SAT 96–100
[~2023-07-26 08:17] MED LIST changes: -AMOX-277 PO; -DOXY-346 PO; +LEVO500T31 PO; -LISI20TA28 PO; +LISI20TA56 PO; -MIDO5TAB3 PO; +MIDO5TAB4 PO
[2023-07-26] MEDS: SODIUM CHLORIDE 0.9% 500 ML IV ONE (08:47)
[2023-07-26 09:09] LABS: Basophils # (auto) 0 10 ^3/uL (0-0.2); Basophils % (auto) 0.6 % (0.0-2.0); Eosinophils # (auto) 0.1 10 ^3/uL (0-0.8); Hemoglobin 8.2 g/dL (13.5-17.5); Lymphocytes # (auto) 0.6 10 ^3/uL (0.4-5.4); Monocytes # (auto) 0.6 10 ^3/uL (0-1.3); Neutrophils # (auto) 4.7 10 ^3/uL (1.6-8.6); Red Cell Distribution Width 15.5 % (11.8-14.3)
[2023-07-26 09:11] LABS: Eosinophils % (auto) 2.2 % (0.0-7.0); Hematocrit 24.5 % (41.0-53.0); Lymphocytes % (auto) 9.2 % (10.0-50.0); Mean Corpuscular Hemoglobin 35.4 pg (28.0-32.0); Mean Corpuscular Hgb Conc. 33.5 g/dL (32.0-36.0); Mean Corpuscular Volume 105.6 fL (80.0-100.0); Monocytes % (auto) 10.2 % (0.0-12.0); Neutrophils % (auto) 77.8 % (37.0-80.0); Red Blood Cells 2.32 10^6/uL (4.5-5.90)
[2023-07-26 09:41] LABS: Chloride 111 mmol/L (98-107); Potassium 5.4 mmol/L (3.5-5.1); Sodium 141 mmol/L (136-145)
[2023-07-26 09:42] LABS: Anion Gap 4 (5-15); Carbon Dioxide 26 mmol/L (20-30)
[2023-07-26 09:43] LABS: Calcium 8.8 mg/dL (8.5-10.1)
[2023-07-26 09:47] LABS: BUN/Creatinine Ratio 19.3 (10.0-20.0); Blood Urea Nitrogen 37 mg/dL (9-23); Glucose 143 mg/dL (74-106)
[2023-07-26] MEDS: ONDANSETRON HCL 4 MG/2 ML VIAL IV ONE (09:47)
[2023-07-26] MEDS: MORPHINE SULFATE 4 MG/ML SYR/VIAL IV ONE (09:48)
[2023-07-26] MEDS: LIDOCAINE 2% JELLY 11ml (GLYDO) ONE (10:04)
[2023-07-26 10:38] LABS: Urine Bacteria FEW /hpf (None Seen); Urine Blood Negative /uL (Negative); Urine Clarity Clear (Clear); Urine Color Yellow (Yellow); Urine Hyaline Cast FEW /lpf (0 - 2); Urine Protein, UAD TRACE (Negative); Urine Specific Gravity 1.016 (1.001-1.035); Urine Urobilinogen Normal (Negative); Urine WBC 1 /hpf (0 - 3)
[2023-07-26] MEDS: ALBUTEROL SULF 2.5 MG/0.5ML(0.5%) NEB SOLN NEB ONE (10:48)
[2023-07-26] MEDS: SODIUM ZIRCONIUM CYCL 10 GM PAK PO ONE (10:49)
[2023-07-26] MEDS: InsuLIN REG 1unit/0.01ml Soln (100units/ml) IV ONE (11:04)
[2023-07-26] MEDS: DEXTROSE (50%) 50ML SYRG IV ONE (11:06)
[2023-07-26 12:22] LABS: Magnesium 2.1 mg/dL (1.6-2.6)
[2023-07-26 12:24] LABS: Phosphorus 4.9 mg/dL (2.4-5.1)
[2023-07-26 12:33] LABS: Protein, Urine 21.8 mg/dL (0.0-11.9)
[2023-07-26 12:36] LABS: Creatinine, Urine 123.73 mg/dL (30.0-125.0); Urine Protein/Creatinine Ratio 0.18
[2023-07-26] MEDS: MORPHINE SULFATE INJ 2 MG/ml SYRG IV PRN (18:41)
[2023-07-26] MEDS ORDERED: FERR325T20 PO (21:21)
[2023-07-26] MEDS ORDERED: OMEP20TA PO (21:21)
[2023-07-26] MEDS ORDERED: PERCOT PO ×2 (21:21)
[2023-07-26] MEDS ORDERED: GABA-339 PO (21:21)
[2023-07-26] MEDS ORDERED: DOCU240C23 PO (21:21)
[2023-07-26] MEDS ORDERED: AMIO200T33 PO (21:21)
[2023-07-26] MEDS ORDERED: APIX2.5T PO (21:21)
[2023-07-26] MEDS ORDERED: MIR30T PO (21:21)
[2023-07-26] MEDS ORDERED: METF-370 PO (21:21)
[2023-07-26] MEDS ORDERED: SENN-58 PO (21:21)
[2023-07-26] MEDS ORDERED: POTA-36 PO (21:21)
[2023-07-27] VITALS (11 sets, daily range): BP systolic 65–136; BP diastolic 39–56; PULSE 68–81; RESP 18–22; TEMP 97.6–99.9; O2SAT 96–100
[2023-07-27] MEDS: HYDROcodone-ACET 5/325MG TAB PO PRN (03:52)
[2023-07-27 10:14] LABS: Chloride 111 mmol/L (98-107); Potassium 5.5 mmol/L (3.5-5.1); Sodium 139 mmol/L (136-145)
[2023-07-27 10:15] LABS: Anion Gap 3 (5-15); Calcium 8.8 mg/dL (8.5-10.1); Carbon Dioxide 25 mmol/L (20-30)
[2023-07-27 10:21] LABS: BUN/Creatinine Ratio 19.3 (10.0-20.0); Blood Urea Nitrogen 32 mg/dL (9-23); Glucose 119 mg/dL (74-106)
[2023-07-27] MEDS: ceFAZolin 2 GM/D5W50ml 50 ML IV ONE (11:15)
[2023-07-27 13:40] LABS: INR 1.12 (0.9-1.15); Partial Thromboplastin Time 29.8 SEC (24.5-34.5); Prothrombin Time 11.8 sec (9.3-11.8)
[2023-07-27] MEDS ORDERED: OXYCODONE W/ ACETAMINOPHEN 5/325MG TABLET PO PRN (16:00)
[2023-07-27] MEDS ORDERED: OXYC-963 PO (16:22)
[2023-07-27] MEDS: ALBUTEROL SULF 2.5 MG/0.5ML(0.5%) NEB SOLN NEB ONE (16:34)
[2023-07-27 17:17] LABS: Basophils # (auto) 0 10 ^3/uL (0-0.2); Eosinophils # (auto) 0.2 10 ^3/uL (0-0.8); Monocytes # (auto) 0.6 10 ^3/uL (0-1.3)
[2023-07-27 17:18] LABS: Basophils % (auto) 0.4 % (0.0-2.0); Eosinophils % (auto) 3.2 % (0.0-7.0); Hematocrit 22.8 % (41.0-53.0); Hemoglobin 7.6 g/dL (13.5-17.5); Lymphocytes # (auto) 0.8 10 ^3/uL (0.4-5.4); Lymphocytes % (auto) 11.5 % (10.0-50.0); Mean Corpuscular Hgb Conc. 33.4 g/dL (32.0-36.0); Mean Corpuscular Volume 107.7 fL (80.0-100.0); Monocytes % (auto) 8.5 % (0.0-12.0); Neutrophils # (auto) 5.3 10 ^3/uL (1.6-8.6); Neutrophils % (auto) 76.4 % (37.0-80.0); Red Blood Cells 2.12 10^6/uL (4.5-5.90); Red Cell Distribution Width 15.3 % (11.8-14.3)
[2023-07-27] MEDS: FUROSEMIDE 40 MG/4 ML VIAL IV ONE (18:58)
[2023-07-27] MEDS: SODIUM ZIRCONIUM CYCL 10 GM PAK PO SCH (18:58)
[2023-07-27] MEDS: OXYCODONE W/ ACETAMINOPHEN 5/325MG TABLET PO PRN (19:01)
[2023-07-27] MEDS: ERGOCALCIFEROL 50,000 UNIT(1.25MG) CAP PO SCH (19:01)
[2023-07-27 19:29] LABS: Chloride 110 mmol/L (98-107); Potassium 5.4 mmol/L (3.5-5.1); Sodium 139 mmol/L (136-145)
[2023-07-27 19:30] LABS: Anion Gap 4 (5-15); Calcium 9.2 mg/dL (8.7-10.4); Carbon Dioxide 25 mmol/L (20-30)
[2023-07-27] MEDS: DEXTROSE (50%) 50ML SYRG IV ONE (19:34)
[2023-07-27 19:35] LABS: BUN/Creatinine Ratio 20.4 (10.0-20.0); Blood Urea Nitrogen 31 mg/dL (9-23); Glucose 157 mg/dL (74-106)
[2023-07-27] MEDS: SODIUM CHLORIDE 0.9% 250 ML IV ONE (19:35)
[2023-07-27] MEDS: InsuLIN REG 1unit/0.01ml Soln (100units/ml) IV ONE (19:36)
[2023-07-27] MEDS: MORPHINE SULFATE INJ 2 MG/ml SYRG IV PRN (23:21)
[2023-07-28] VITALS (15 sets, daily range): BP systolic 110–131; BP diastolic 39–55; PULSE 62–84; RESP 16–22; TEMP 97.4–98.8; O2SAT 97–99
[2023-07-28 03:04] LABS: Basophils # (auto) 0 10 ^3/uL (0-0.2); Basophils % (auto) 0.5 % (0.0-2.0); Eosinophils # (auto) 0.2 10 ^3/uL (0-0.8); Eosinophils % (auto) 3.6 % (0.0-7.0); Lymphocytes # (auto) 0.6 10 ^3/uL (0.4-5.4); Lymphocytes % (auto) 10.2 % (10.0-50.0); Mean Corpuscular Hemoglobin 35.3 pg (28.0-32.0); Mean Corpuscular Hgb Conc. 31.2 g/dL (32.0-36.0); Mean Corpuscular Volume 113.1 fL (80.0-100.0); Monocytes # (auto) 0.6 10 ^3/uL (0-1.3); Neutrophils # (auto) 4.3 10 ^3/uL (1.6-8.6); Neutrophils % (auto) 74.7 % (37.0-80.0); Nucleated Red Blood Cells % 0.1 %; Red Blood Cells 1.94 10^6/uL (4.5-5.90); White Blood Cell 5.7 10^3/uL (4.4-10.8)
[2023-07-28 03:10] LABS: Hemoglobin 6.9 g/dL (13.5-17.5)
[2023-07-28 03:16] LABS: Chloride 108 mmol/L (98-107); Potassium 4.9 mmol/L (3.5-5.1); Sodium 140 mmol/L (136-145)
[2023-07-28 03:17] LABS: Anion Gap 4 (5-15); Carbon Dioxide 28 mmol/L (20-30)
[2023-07-28 03:18] LABS: Calcium 8.9 mg/dL (8.7-10.4)
[2023-07-28 03:22] LABS: BUN/Creatinine Ratio 20.5 (10.0-20.0); Blood Urea Nitrogen 30 mg/dL (9-23); Glucose 126 mg/dL (74-106)
[2023-07-28 04:19] LABS: Platelet Estimate Decreased
[2023-07-28 04:31] LABS: Macrocytosis Marked
[2023-07-28 08:47] LABS: % Iron Saturation 14.8 % (20-55)
[2023-07-28 08:53] LABS: Folate (Folic Acid) 18.4 ng/mL (>5.38)
[2023-07-28] MEDS: OXYCODONE W/ ACETAMINOPHEN 5/325MG TABLET PO PRN (10:52)
[2023-07-28 11:30] LABS: Basophils # (auto) 0 10 ^3/uL (0-0.2); Basophils % (auto) 0.3 % (0.0-2.0); Eosinophils # (auto) 0.2 10 ^3/uL (0-0.8); Lymphocytes # (auto) 0.5 10 ^3/uL (0.4-5.4); Lymphocytes % (auto) 10.8 % (10.0-50.0); Monocytes # (auto) 0.5 10 ^3/uL (0-1.3); Neutrophils # (auto) 3.7 10 ^3/uL (1.6-8.6)
[2023-07-28 11:33] LABS: Eosinophils % (auto) 3.3 % (0.0-7.0); Hematocrit 20.7 % (41.0-53.0); Mean Corpuscular Hemoglobin 36.7 pg (28.0-32.0); Mean Corpuscular Volume 108.1 fL (80.0-100.0); Monocytes % (auto) 10.8 % (0.0-12.0); Neutrophils % (auto) 74.8 % (37.0-80.0); Red Blood Cells 1.91 10^6/uL (4.5-5.90); Red Cell Distribution Width 15.3 % (11.8-14.3)
[2023-07-28] MEDS ORDERED: IRON SUCROSE COMPLEX 100 ML IV SCH ×2 (13:15→14:30)
[2023-07-28] MEDS ORDERED: SODIUM FERR GLUC 62.5MG/5ML 125 MG in SODIUM CHL 0.9% 100 ML IV SCH (13:16)
[2023-07-28] MEDS: SODIUM FERR GLUC 62.5MG/5ML 125 MG in SODIUM CHL 0.9% 100 ML IV SCH (14:59)
[2023-07-28] MEDS: DOCUSATE SOD 100 MG CAP PO SCH (21:41)
[2023-07-29] VITALS (12 sets, daily range): BP systolic 119–140; BP diastolic 44–55; PULSE 64–83; RESP 16–20; TEMP 97.5–98.5; O2SAT 95–100
[2023-07-29 06:28] LABS: Chloride 109 mmol/L (98-107); Potassium 4.6 mmol/L (3.5-5.1); Sodium 140 mmol/L (136-145)
[2023-07-29 06:29] LABS: Anion Gap 4 (5-15); Carbon Dioxide 27 mmol/L (20-30)
[2023-07-29 06:32] LABS: Basophils # (auto) 0 10 ^3/uL (0-0.2); Eosinophils # (auto) 0.2 10 ^3/uL (0-0.8); Lymphocytes # (auto) 0.6 10 ^3/uL (0.4-5.4); Mean Corpuscular Hemoglobin 34.6 pg (28.0-32.0); Monocytes # (auto) 0.5 10 ^3/uL (0-1.3); Neutrophils # (auto) 3.2 10 ^3/uL (1.6-8.6); White Blood Cell 4.6 10^3/uL (4.4-10.8)
[2023-07-29 06:34] LABS: BUN/Creatinine Ratio 18.9 (10.0-20.0); Blood Urea Nitrogen 24 mg/dL (9-23); Glucose 105 mg/dL (74-106)
[2023-07-29 06:37] LABS: Basophils % (auto) 0.5 % (0.0-2.0); Eosinophils % (auto) 5.4 % (0.0-7.0); Hematocrit 25.1 % (41.0-53.0); Hemoglobin 8.7 g/dL (13.5-17.5); Lymphocytes % (auto) 12.7 % (10.0-50.0); Mean Corpuscular Hgb Conc. 34.7 g/dL (32.0-36.0); Mean Corpuscular Volume 99.8 fL (80.0-100.0); Monocytes % (auto) 11.1 % (0.0-12.0); Neutrophils % (auto) 70.3 % (37.0-80.0); Red Blood Cells 2.51 10^6/uL (4.5-5.90); Red Cell Distribution Width 17.9 % (11.8-14.3)
[2023-07-29] MEDS: methylPREDNISolone SOD SUCC 125 MG/2 ML VL IV SCH (14:15)
[2023-07-29 23:52] LABS: Basophils # (auto) 0 10 ^3/uL (0-0.2); Basophils % (auto) 0.2 % (0.0-2.0); Eosinophils # (auto) 0.1 10 ^3/uL (0-0.8); Hematocrit 27.3 % (41.0-53.0); Hemoglobin 9.3 g/dL (13.5-17.5); Lymphocytes # (auto) 0.3 10 ^3/uL (0.4-5.4); Lymphocytes % (auto) 4.8 % (10.0-50.0); Mean Corpuscular Hemoglobin 34.3 pg (28.0-32.0); Mean Corpuscular Hgb Conc. 34.1 g/dL (32.0-36.0); Mean Corpuscular Volume 100.4 fL (80.0-100.0); Monocytes # (auto) 0.2 10 ^3/uL (0-1.3); Monocytes % (auto) 3.7 % (0.0-12.0); Neutrophils # (auto) 4.9 10 ^3/uL (1.6-8.6); Neutrophils % (auto) 90.3 % (37.0-80.0); Red Blood Cells 2.72 10^6/uL (4.5-5.90); Red Cell Distribution Width 17.1 % (11.8-14.3); White Blood Cell 5.4 10^3/uL (4.4-10.8)
[2023-07-30] VITALS (9 sets, daily range): BP systolic 109–128; BP diastolic 49–59; PULSE 61–72; RESP 17–22; TEMP 97.5–98.4; O2SAT 93–100
[2023-07-30 06:24] LABS: Basophils # (auto) 0 10 ^3/uL (0-0.2); Basophils % (auto) 0.1 % (0.0-2.0); Eosinophils # (auto) 0 10 ^3/uL (0-0.8); Hematocrit 27.8 % (41.0-53.0); Hemoglobin 9.6 g/dL (13.5-17.5); Lymphocytes % (auto) 7.6 % (10.0-50.0); Mean Corpuscular Hgb Conc. 34.5 g/dL (32.0-36.0); Monocytes # (auto) 0.1 10 ^3/uL (0-1.3); Neutrophils % (auto) 90.4 % (37.0-80.0); White Blood Cell 3.3 10^3/uL (4.4-10.8)
[2023-07-30 06:26] LABS: Calcium 9.3 mg/dL (8.7-10.4); Chloride 107 mmol/L (98-107); Eosinophils % (auto) 0.2 % (0.0-7.0); Lymphocytes # (auto) 0.3 10 ^3/uL (0.4-5.4); Mean Corpuscular Hemoglobin 34.6 pg (28.0-32.0); Mean Corpuscular Volume 100.2 fL (80.0-100.0); Monocytes % (auto) 1.7 % (0.0-12.0); Nucleated Red Blood Cells % 0.1 %; Red Blood Cells 2.77 10^6/uL (4.5-5.90); Red Cell Distribution Width 16.5 % (11.8-14.3); Sodium 140 mmol/L (136-145)
[2023-07-30 06:27] LABS: Anion Gap 8 (5-15); Carbon Dioxide 25 mmol/L (20-30)
[2023-07-30 06:32] LABS: BUN/Creatinine Ratio 19.5 (10.0-20.0); Blood Urea Nitrogen 24 mg/dL (9-23); Glucose 181 mg/dL (74-106)
[2023-07-30] MEDS ORDERED: MORPHINE SULFATE INJ 2 MG/ml SYRG IV PRN (09:00)
[2023-07-30] MEDS ORDERED: KETAMINE 50mg/ML 1ml syringe ONE (12:54)
[2023-07-30] MEDS ORDERED: MIDAZOLAM HCL 2MG/2ML 2ml VIAL (1mg/ml) ONE (12:54)
[2023-07-30] MEDS ORDERED: HYDROmorphone HCL 2 MG/ML VL/or syr ONE (12:54)
[2023-07-30] MEDS ORDERED: fentaNYL CITRATE 100 MCG/2 ML VL ONE (12:54)
[2023-07-30] MEDS ORDERED: LIDOCAINE 2% (LOCAL ANESTH.) PF 5ml SDV ONE (12:55)
[2023-07-30] MEDS ORDERED: DexAMETHasone SOD PHOS 10MG/1ML VIAL INJ ONE (12:55)
[2023-07-30] MEDS ORDERED: ePHEDrine SULFATE 50 MG/ML AMP ONE (12:55)
[2023-07-30] MEDS ORDERED: PROPOFOL 10 MG/ML 20 ML IV ONE (12:55)
[2023-07-30] MEDS ORDERED: PHENYLEPHRINE HCL 10 MG/ML VL ONE (12:55)
[2023-07-30] MEDS: EPINEPHrine HCL 1 MG/1 ML AMP ONE ×2 (13:39→13:50)
[2023-07-30] MEDS: DexAMETHasone SOD PHOS 4 MG/1ML SDV INJ ONE (13:50)
[2023-07-30] MEDS: BUPIVACAINE 0.25% INJ 50ML VIAL ONE ×2 (13:51→15:24)
[2023-07-30] MEDS: BUPIVACAINE HCL 50 ML ONE (13:51)
[2023-07-30] MEDS: ceFAZolin 2 GM/D5W50ml 50 ML IV ONE (13:53)
[2023-07-30] MEDS: TRANEXAMIC ACID 20 ML ONE (14:45)
[2023-07-30] MEDS ORDERED: HYDROmorphone HCL 2 MG/ML VL/or syr IV PRN (16:00)
[2023-07-30] MEDS: ONDANSETRON HCL 4 MG/2 ML VIAL IV ONE (16:00)
[2023-07-30] MEDS: FERROUS SULFATE 325mg EC TAB PO SCH (18:00)
[2023-07-31] MEDS: ACETAMINOPHEN 325 MG TAB PO PRN (03:55)
[2023-07-31 05:00] VITALS: BP 132/58; PULSE 58; RESP 22; TEMP 98.5; O2SAT 97
[2023-07-31 06:19] LABS: Basophils # (auto) 0 10 ^3/uL (0-0.2); Basophils % (auto) 0.1 % (0.0-2.0); Eosinophils # (auto) 0 10 ^3/uL (0-0.8); Hematocrit 25.9 % (41.0-53.0); Hemoglobin 8.8 g/dL (13.5-17.5); Lymphocytes # (auto) 0.3 10 ^3/uL (0.4-5.4); Mean Corpuscular Hemoglobin 34.3 pg (28.0-32.0); Mean Corpuscular Hgb Conc. 33.8 g/dL (32.0-36.0); Mean Corpuscular Volume 101.6 fL (80.0-100.0); Monocytes # (auto) 0.3 10 ^3/uL (0-1.3); Monocytes % (auto) 4.4 % (0.0-12.0); Neutrophils # (auto) 5.3 10 ^3/uL (1.6-8.6); Neutrophils % (auto) 90.5 % (37.0-80.0); Nucleated Red Blood Cells % 0.1 %; Red Blood Cells 2.55 10^6/uL (4.5-5.90); White Blood Cell 5.9 10^3/uL (4.4-10.8)
[2023-07-31 06:25] LABS: Anion Gap 6 (5-15); Carbon Dioxide 25 mmol/L (20-30); Chloride 106 mmol/L (98-107); Sodium 137 mmol/L (136-145)
[2023-07-31 06:26] LABS: Calcium 8.6 mg/dL (8.7-10.4)
[2023-07-31 06:31] LABS: BUN/Creatinine Ratio 24.2 (10.0-20.0); Glucose 255 mg/dL (74-106)
[2023-07-31 06:34] LABS: Blood Urea Nitrogen 38 mg/dL (9-23)
[2023-07-31 08:00] VITALS: PULSE 60; PULSE 69; RESP 20; O2SAT 96
[2023-07-31 09:00] VITALS: BP 126/53; PULSE 80; RESP 17; TEMP 97.8; O2SAT 97
[2023-07-31] MEDS ORDERED: ERGO1CAP23 PO (11:17)
[2023-07-31 12:57] VITALS: BP 115/48; PULSE 65; RESP 17; TEMP 97.8; O2SAT 99
[2023-07-31 15:40] VITALS: BP 120/43; PULSE 66; RESP 20; TEMP 36.6; O2SAT 96
[2023-07-31 17:00] VITALS: BP 123/48; PULSE 64; RESP 20; TEMP 97.6; O2SAT 95
== END 2023-07-31 17:10 | disposition hospice, home (50) | DRG 481 ==
LOC: EDBD 08:17 → ER 08:17 → OVERFLOW 10:23 → TELE-EAST 10:23 → EAST 07-29 00:50 → TELE-EAST 07-29 12:21
PROVIDERS: ADMIT Internal Medicine; ATTEND Internal Medicine
PROC: 30233K1 Transfusion of Nonautologous Frozen Plasma into Peripheral Vein, Percutaneous Approach (ICD-10-PCS; principal; 2023-07-27)
PROC: 30233N1 Transfusion of Nonautologous Red Blood Cells into Peripheral Vein, Percutaneous Approach (ICD-10-PCS; 2023-07-28)
PROC: 30233R1 Transfusion of Nonautologous Platelets into Peripheral Vein, Percutaneous Approach (ICD-10-PCS; 2023-07-29)
PROC: 0QS704Z Reposition Left Upper Femur with Internal Fixation Device, Open Approach (ICD-10-PCS; 2023-07-30)
DX: S72.142A Displaced intertrochanteric fracture of left femur, initial encounter for closed fracture (principal); I13.0 Hypertensive heart and chronic kidney disease with heart failure and stage 1 through stage 4 chronic kidney disease, or unspecified chronic kidney disease; N17.9 Acute kidney failure, unspecified; I50.22 Chronic systolic (congestive) heart failure; W01.0XXA Fall on same level from slipping, tripping and stumbling without subsequent striking against object, initial encounter; N18.32 Chronic kidney disease, stage 3b; F03.90 Unspecified dementia, unspecified severity, without behavioral disturbance, psychotic disturbance, mood disturbance, and anxiety; J44.9 Chronic obstructive pulmonary disease, unspecified; D63.1 Anemia in chronic kidney disease; E11.40 Type 2 diabetes mellitus with diabetic neuropathy, unspecified; E78.5 Hyperlipidemia, unspecified; E87.5 Hyperkalemia; F32.9 Major depressive disorder, single episode, unspecified; I48.0 Paroxysmal atrial fibrillation; K21.9 Gastro-esophageal reflux disease without esophagitis; D69.6 Thrombocytopenia, unspecified; R91.1 Solitary pulmonary nodule; Z79.01 Long term (current) use of anticoagulants; Z79.899 Other long term (current) drug therapy; Z82.49 Family history of ischemic heart disease and other diseases of the circulatory system; Z82.3 Family history of stroke; Z95.0 Presence of cardiac pacemaker; Z83.3 Family history of diabetes mellitus; Y93.89 Activity, other specified; Y92.89 Other specified places as the place of occurrence of the external cause; Y99.8 Other external cause status; K70.30 Alcoholic cirrhosis of liver without ascites
CPT/HCPCS: 36415; 36430; 70450; 71045; 73501; 73502; 76000; 76775; 80048; 81001; 82306; 82570; 82607; 82746; 82962; 83540; 83550; 83735; 83970; 84100; 84156; 84300; 85025; 85610; 85730; 86850; 86900; 86901; 86920; 93306; 94640; 96374; 96375; 97110; 97163; G0378; J0171; J1100; J1815; J2001; J2250; J2405; J2704; J3490

== ENCOUNTER 2023-08-02 17:17 | Emergency (ER) | payer OTHER ==
[~2023-08-02] VITALS: Ht 172.7 cm; Wt 93.2 kg
[~2023-08-02 17:17] MED LIST changes: +AMIO200T33 PO; +APIX2.5T PO; +DOCU240C23 PO; +ERGO1CAP23 PO; +FERR325T20 PO; -FURO40TA4 PO; +GABA-339 PO; -LEVO500T31 PO; -LISI20TA56 PO; +METF-370 PO; -MIDO5TAB4 PO; +MIR30T PO; +OMEP20TA PO; +PERCOT PO; +POTA-36 PO; -POTA1TAB4 PO; +SENN-58 PO
[2023-08-02 17:33] VITALS: PULSE 71; RESP 16; O2SAT 95
[2023-08-02] MEDS: NALOXONE HCL 1MG/ML 2ML SYRINGE IV ONE (17:46)
[2023-08-02] MEDS: NALOXONE HCL 1MG/ML 2ML SYRINGE ONE (18:01)
[2023-08-02 18:35] LABS: Basophils # (auto) 0 10 ^3/uL (0-0.2); Basophils % (auto) 0.2 % (0.0-2.0); Eosinophils # (auto) 0 10 ^3/uL (0-0.8); Eosinophils % (auto) 0.1 % (0.0-7.0); Hematocrit 32.2 % (41.0-53.0); Hemoglobin 10.7 g/dL (13.5-17.5); Lymphocytes # (auto) 0.6 10 ^3/uL (0.4-5.4); Mean Corpuscular Hemoglobin 33.8 pg (28.0-32.0); Mean Corpuscular Hgb Conc. 33.3 g/dL (32.0-36.0); Mean Corpuscular Volume 101.4 fL (80.0-100.0); Monocytes # (auto) 0.3 10 ^3/uL (0-1.3); Monocytes % (auto) 3.4 % (0.0-12.0); Neutrophils # (auto) 9.1 10 ^3/uL (1.6-8.6); Neutrophils % (auto) 90.3 % (37.0-80.0); Nucleated Red Blood Cells % 0.1 %; Red Blood Cells 3.17 10^6/uL (4.5-5.90); Red Cell Distribution Width 16.8 % (11.8-14.3); White Blood Cell 10.1 10^3/uL (4.4-10.8)
[2023-08-02] MEDS: FUROSEMIDE 40 MG/4 ML VIAL IV ONE (18:42)
[2023-08-02] MEDS: PIPERACILLIN-TAZOB 3.375GM 100 ML IV ONE (18:42)
[2023-08-02 18:59] LABS: Alanine Aminotransferase 26 U/L (7-40); Albumin 3.7 g/dL (3.2-4.8); Alkaline Phosphatase 128 U/L (46-116); Anion Gap 8 (5-15); Aspartate Aminotransferase 42 U/L (13-40); BUN/Creatinine Ratio 18.9 (10.0-20.0); Bilirubin, Total 0.7 mg/dL (0.2-1.0); Blood Urea Nitrogen 60 mg/dL (9-23); Carbon Dioxide 24 mmol/L (20-30); Chloride 103 mmol/L (98-107); Glucose 161 mg/dL (74-106); Magnesium 2.2 mg/dL (1.6-2.6); Sodium 135 mmol/L (136-145)
[2023-08-02] MEDS: ALBUTEROL SULF 2.5 MG/0.5ML(0.5%) NEB SOLN HHN ONE (19:02)
[2023-08-02] MEDS: IPRATROPIUM BROM 0.5 MG/2.5ML INH SOL HHN ONE (19:03)
[2023-08-02] MEDS ORDERED: AZIT1POW PO (19:05)
[2023-08-02 19:07] LABS: Lactic Acid w/Reflex 2.8 mmol/L (0.4-2.0)
[2023-08-02] MEDS ORDERED: NALO4SPR2 (19:31)
[2023-08-02 20:18] VITALS: BP 121/94; PULSE 92; RESP 21; O2SAT 92
== END 2023-08-02 23:20 | disposition home or self-care (01) ==
LOC: EDUNIT# 17:17 → ER 17:17 → EDBD 17:17 → ER 23:20
DX: J18.9 Pneumonia, unspecified organism (principal); I11.0 Hypertensive heart disease with heart failure; I50.9 Heart failure, unspecified; E11.9 Type 2 diabetes mellitus without complications; R41.82 Altered mental status, unspecified
CPT/HCPCS: 36415; 71045; 80053; 83605; 83735; 83880; 85025; 87040; 93005; 94640; 96365; 96375; 99285; J1940; J2310; J2543; J7644